=== PATIENT | female | born 1965 | race Caucasian/White ===

== ENCOUNTER 2016-08-23 10:34 | Emergency (ER) | payer OTHER ==
[2016-08-23 11:13] VITALS: BP 147/74
--- NOTE | 2016-08-23 11:52 | EDM.PDOC ---
{null, ED HPI GENERAL MEDICAL PROBLEM - General Chief Complaint: ENT Problem Stated Complaint: STREP THROAT Time Seen by Provider: 08/23/16 11:40 - History of Present Illness INITIAL COMMENTS - FREE TEXT/NARRATIVE: patient comes emergency Department today with complaints of a sore throat that has been going on for the past 5 days. She has had an intermittent fever and chills. Her pain is slowly getting worse in her throat. She denies any ear pressure congestion or pain. She denies any sinus congestion drainage or pain. She denies any difficulty swallowing. She denies shortness of breath or chest pain. She denies any rash. No nausea vomiting or diarrhea. No abdominal pain. Throat Pain Score (Numeric/FACES): 7 - Related Data Allergies Allergy/AdvReac Type Severity Reaction Status Date / Time No Known Allergies Allergy Verified 08/23/16 11:17 Home Meds: Home Meds DULoxetine [Cymbalta] 60 mg PO DAILY 08/23/16 [History] Diclofenac Sodium [Diclofenac Sodium ER] 100 mg PO 08/23/16 [History] Past Medical History - Past Surgical History Female Surgical History: Reports: Hysterectomy Musculoskeletal Surgical History: Reports: Other (See Below) Other Musculoskeletal Surgeries/Procedures:: foot surgery Social & Family History - Tobacco Use Smoking Status *Q: Current Every Day Smoker Years of Tobacco use: 20 Packs/Tins Daily: 0.5 - Caffeine Use Caffeine Use: Reports: Coffee, Soda - Alcohol Use Days Per Week of Alcohol Use: 2 Number of Drinks Per Day: 3 Total Drinks Per Week: 6 - Recreational Drug Use Recreational Drug Use: No ED ROS ENT - Review of Systems Review Of Systems: ROS reveals no pertinent complaints other than HPI. ED EXAM, ENT - Physical Exam Exam: See Below Exam Limited By: No Limitations General Appearance: Alert, WD/WN, No Apparent Distress Eye Exam: Bilateral Eye: Normal Inspection, PERRL Ears: Normal External Exam, Normal Canal, Hearing Grossly Normal, Normal TMs Nose: Normal Inspection, Normal Mucousa, No Blood Mouth/Throat: Normal Gums, Normal Lips, Muffled Voice, Pharyngeal Erythema, Tonsillar Erythema, Tonsillar Exudates, Tonsillar Swelling. No: Drooling, Oral Ulcers, Perioral Cyanosis, Peritonsillar Mass, Uvular Deviation, Uvular Edema Head: Atraumatic, Normocephalic Neck: Normal Inspection, Lymphadenopathy (L) (tonsillar lymphadenopathy bilateral.), Lymphadenopathy (R) Respiratory/Chest: No Respiratory Distress, Lungs Clear, Normal Breath Sounds, No Accessory Muscle Use Cardiovascular: Normal Peripheral Pulses, Regular Rate, Rhythm (Female) Exam: Deferred Rectal (Female) Exam: Deferred Extremities: Normal Inspection Neurological: Alert, Oriented, CN II-XII Intact Skin: Warm, Dry, Intact, Normal Color Course - Vital Signs Last Recorded V/S: Last Vital Signs Temp 36.8 C 08/23/16 11:11 Pulse 76 08/23/16 11:11 Resp 16 08/23/16 11:11 BP 147/74 H 08/23/16 11:11 Pulse Ox 98 08/23/16 11:11 - Orders/Labs/Meds Orders: Active Orders 24 hr Category Date Time Status CULTURE STREP A CONFIRMATION [RM] Stat Lab 08/23/16 11:08 Results STREP SCRN A RAPID W CULT CONF [] Stat Lab 08/23/16 11:08 Results - Re-Assessments/Exams Free Text/Narrative Re-Assessment/Exam: 08/23/16 11:49 although the patient has a negative initial strep screen her tonsils are quite erythematous with purulent discharge I will treat her for pharyngitis at this time. Discharged instructions as below were explained to the patient she was comfortable with the plan questions were answered. Departure - Departure Time of Disposition: 11:45 Disposition: Home, Self-Care 01 Clinical Impression: Pharyngitis Qualifiers: Pharyngitis/tonsillitis etiology: unspecified etiology Qualified Code(s): J02.9 - Acute pharyngitis, unspecified - Discharge Information Instructions: Pharyngitis, [id number] Forms: ED Department Discharge Additional Instructions: Tylenol and/or ibuprofen as needed for pain. Honey as needed for cough or sore throat. Warm salt water gargle rinses for comfort of her throat. Amoxicillin 500 mg one tab twice a day for 10 days. Take till gone no matter what. Return to emergency department for new or worsening symptoms. Recheck with primary care provider in the next 4-6 days if not improving. Sooner if worse. - My Orders Last 24 Hours: My Active Orders 08/23/16 11:08 CULTURE STREP A CONFIRMATION [RM] Stat STREP SCRN A RAPID W CULT CONF [] Stat - Assessment/Plan Last 24 Hours: My Active Orders 08/23/16 11:08 CULTURE STREP A CONFIRMATION [RM] Stat STREP SCRN A RAPID W CULT CONF [RM] Stat Assessment:: Pharyngitis. Plan: Tylenol and/or ibuprofen as needed for pain. Honey as needed for cough or sore throat. Warm salt water gargle rinses for comfort of her throat. Amoxicillin 500 mg one tab twice a day for 10 days. Take till gone no matter what. Return to emergency department for new or worsening symptoms. Recheck with primary care provider in the next 4-6 days if not improving. Sooner if worse. }
== END 2016-08-23 11:58 | disposition home or self-care (01) ==
LOC: DL.ED 10:34
DX: J02.9 Acute pharyngitis, unspecified (principal); F17.210 Nicotine dependence, cigarettes, uncomplicated; Z79.899 Other long term (current) drug therapy
CPT/HCPCS: 87081; 87430; 99282

== ENCOUNTER 2017-09-04 11:02 | Emergency (ER) | payer OTHER ==
--- NOTE | 2017-09-04 11:07 | EDM.PDOC ---
ED HPI GENERAL MEDICAL PROBLEM - General Chief Complaint: ENT Problem Stated Complaint: [id number] SORE THROAT Time Seen by Provider: 09/04/17 11:06 Source of Information: Reports: Patient, Old Records, RN, RN Notes Reviewed History Limitations: Reports: No Limitations - History of Present Illness INITIAL COMMENTS - FREE TEXT/NARRATIVE: C/O sore throat with sinus drainage and muffled ears on and off x2 weeks. Denies any fever, or chills. Admits to mild occasional dry cough. Duration: Constant, Waxing/Waning Location: Reports: Head, Face, Other (throat) Quality: Reports: Ache Severity: Moderate Improves with: Reports: None Worsens with: Reports: None Associated Symptoms: Reports: No Other Symptoms Throat Pain Score (Numeric/FACES): 4 - Related Data Allergies Allergy/AdvReac Type Severity Reaction Status Date / Time No Known Allergies Allergy Verified 09/04/17 11:08 Home Meds: Home Meds DULoxetine [Cymbalta] 60 mg PO DAILY 08/23/16 [History] Diclofenac Sodium [Diclofenac Sodium ER] 100 mg PO 08/23/16 [History] Past Medical History - Past Surgical History Female Surgical History: Reports: Hysterectomy Musculoskeletal Surgical History: Reports: Other (See Below) Other Musculoskeletal Surgeries/Procedures:: foot surgery Social & Family History - Family History Family Medical History: Noncontributory - Tobacco Use Smoking Status *Q: Current Every Day Smoker Tobacco Use Within Last Twelve Months: Cigarettes - Caffeine Use Caffeine Use: Reports: Coffee, Soda - Living Situation & Occupation Living situation: Reports: with Family ED ROS ENT - Review of Systems Review Of Systems: ROS reveals no pertinent complaints other than HPI. ED EXAM, ENT - Physical Exam Exam: See Below Exam Limited By: No Limitations General Appearance: Alert, WD/WN, No Apparent Distress Eye Exam: Bilateral Eye: Normal Inspection Ears: Normal External Exam, Normal Canal, Hearing Grossly Normal, TM Dullness. No: Canal Discharge, TM Bulging, TM Erythema, TM Blood, TM Fluid, TM Perforation Nose: Nasal Discharge (mild clear) Mouth/Throat: Normal Gums, Normal Lips, Normal Teeth, Other (clear postnasal drip). No: Pharyngeal Erythema, Tonsillar Erythema, Tonsillar Exudates, Tonsillar Swelling Head: Atraumatic, Normocephalic Neck: Normal Inspection, Supple, Non-Tender, Full Range of Motion. No: Lymphadenopathy (L), Lymphadenopathy (R) Respiratory/Chest: No Respiratory Distress, Lungs Clear, Normal Breath Sounds, No Accessory Muscle Use, Chest Non-Tender Cardiovascular: Regular Rate, Rhythm Neurological: Alert, Oriented, CN II-XII Intact, Normal Cognition, Normal Gait, No Motor/Sensory Deficits Psychiatric: Normal Affect, Normal Mood Skin: Warm, Dry, Intact, Normal Color, No Rash Course - Vital Signs Last Recorded V/S: Last Vital Signs Temp 36.6 C 09/04/17 11:10 Pulse 86 09/04/17 11:10 Resp 16 09/04/17 11:10 BP 140/60 09/04/17 11:10 Pulse Ox 100 09/04/17 11:10 Departure - Departure Time of Disposition: 11:26 Disposition: Home, Self-Care 01 Condition: Good Clinical Impression: Post-nasal drip Allergic rhinosinusitis Qualifiers: Allergic rhinitis trigger: unspecified Allergic rhinitis seasonality: unspecified seasonality Qualified Code(s): J30.9 - Allergic rhinitis, unspecified - Discharge Information Instructions: Sinus Rinse, [id number], Nasal Allergies Referrals: Shante Ha [Primary Care Provider] - Forms: ED Department Discharge Additional Instructions: Try to avoid smoking and smoke exposure. May continue with over the counter Loratadine 10mg once a day after completing the Loratadine D 24HR prescription. Follow up with your clinic if not improving in 4 to 5 days.
[2017-09-04 11:13] VITALS: BP 140/60
== END 2017-09-04 11:43 | disposition home or self-care (01) ==
LOC: DL.ED 11:02
DX: J30.9 Allergic rhinitis, unspecified (principal); F17.210 Nicotine dependence, cigarettes, uncomplicated; Z79.899 Other long term (current) drug therapy
CPT/HCPCS: 99283

== ENCOUNTER 2021-03-11 15:29 | Inpatient (IN) | payer OTHER ==
--- NOTE | 2021-03-11 15:34 | EDM.PDOC ---
ED HPI GENERAL MEDICAL PROBLEM - General Chief Complaint: Respiratory Problem Stated Complaint: COVID PT Time Seen by Provider: 03/11/21 15:30 Source of Information: Reports: Patient, Old Records, Provider (Tania Glynn NP), RN, RN Notes Reviewed History Limitations: Reports: No Limitations - History of Present Illness INITIAL COMMENTS - FREE TEXT/NARRATIVE: Pt sent from clinic by Tania Glynn NP with c/o cough, hypoxia, and COVID. Pt reports 10 days of COVID symptoms, and tested positive in clinic 7 days ago. Today she returned to clinic to ask for a prescription cough medication, and was found to have oxygen saturation 73% on room air. Pt admits to fever, cough, fatigue, and headache from coughing. She denies feeling short of breath. Denies chest pain, hemoptysis, abdominal pain, N/V/D, edema, or rash. Pt has not been COVID vaccinated. Onset: Gradual Duration: Day(s): (10) Location: Reports: Generalized Quality: Reports: Ache Severity: Moderate Improves with: Reports: None Worsens with: Reports: Other (Coughing) Associated Symptoms: Reports: No Other Symptoms - Related Data Allergies Allergy/AdvReac Type Severity Reaction Status Date / Time No Known Allergies Allergy Verified 03/11/21 15:44 Home Meds: Home Meds DULoxetine [Cymbalta] 60 mg PO DAILY 08/23/16 [History] Diclofenac Sodium [Diclofenac Sodium ER] 100 mg PO DAILY 08/23/16 [History] Past Medical History - Past Health History Medical/Surgical History: Denies Medical/Surgical History Musculoskeletal History: Reports: Arthritis - Past Surgical History Female Surgical History: Reports: Hysterectomy Musculoskeletal Surgical History: Reports: Other (See Below) Other Musculoskeletal Surgeries/Procedures:: foot surgery Social & Family History - Family History Family Medical History: No Pertinent Family History - Caffeine Use Caffeine Use: Reports: Coffee, Soda - Living Situation & Occupation Living situation: Reports: with Family ED ROS GENERAL - Review of Systems Review Of Systems: Comprehensive ROS is negative, except as noted in HPI. ED EXAM, GENERAL - Physical Exam Exam: See Below Exam Limited By: No Limitations General Appearance: Alert, WD/WN, No Apparent Distress Eye Exam: Bilateral Eye: Normal Inspection Nose: Normal Inspection, Normal Mucosa, No Blood Throat/Mouth: Normal Inspection, Normal Lips, Normal Teeth, Normal Gums, Normal Oropharynx, Normal Voice, No Airway Compromise Head: Atraumatic, Normocephalic Neck: Normal Inspection, Supple, Non-Tender, Full Range of Motion Respiratory/Chest: No Respiratory Distress, Lungs Clear, Normal Breath Sounds, No Accessory Muscle Use, Chest Non-Tender Cardiovascular: Regular Rate, Rhythm, No Edema, Tachycardia GI/Abdominal: Normal Bowel Sounds, Soft, Non-Tender Back Exam: Normal Inspection Extremities: Normal Inspection, Normal Range of Motion, Non-Tender, Normal Capillary Refill, No Pedal Edema Neurological: Alert, Oriented, CN II-XII Intact, Normal Cognition, Normal Gait, No Motor/Sensory Deficits Psychiatric: Normal Affect, Normal Mood Skin Exam: Warm, Dry, Intact, Normal Color, No Rash Course - Vital Signs Last Recorded V/S: Last Vital Signs Temp 98.2 F 03/11/21 15:47 Pulse 96 03/11/21 15:47 Resp 20 03/11/21 15:47 BP 123/70 03/11/21 15:47 Pulse Ox 92 L 03/11/21 15:47 - Orders/Labs/Meds Orders: Active Orders 24 hr Category Date Time Status Peripheral IV Care [RC] . DIRECTED Care 03/11/21 15:19 Active Chest w Cont [CT] Stat Exams 03/11/21 17:23 Ordered CULTURE BLOOD [BC] Stat Lab 03/11/21 15:32 Received CULTURE BLOOD [BC] Stat Lab 03/11/21 15:35 Received Sodium Chloride 0.9% [Saline Flush] Med 03/11/21 15:18 Active 10 ml FLUSH ASDIRECTED PRN Blood Culture x2 Reflex Set [OM.PC] Stat Oth 03/11/21 15:17 Ordered Peripheral IV Insertion Adult [OM.PC] Stat Oth 03/11/21 15:18 Ordered Medication Orders Sodium Chloride (Sodium Chloride 0.9% 10 Ml Syringe) 10 ml FLUSH ASDIRECTED PRN PRN Reason: Keep Vein Open Last Admin: 03/11/21 16:04 Dose: 10 ml Documented by: SUSAN Labs: Laboratory Tests 03/11/21 03/11/21 03/11/21 Range/Units 15:32 15:32 15:32 WBC 7.4 (5.0-10.0) 10^3/uL RBC 5.20 (4.2-5.4) 10^6/uL Hgb 15.1 (12.0-16.0) g/dL Hct 46.3 (37.0-47.0) % MCV 89.0 (80-100) fL MCH 29.0 (27.0-34.0) pg MCHC 32.6 L (33.0-35.0) g/dL Plt Count 273 (150-450) 10^3/uL Neut % (Auto) 75.6 H (42.2-75.2) % Lymph % (Auto) 16.1 L (20.5-50.1) % Gentry % (Auto) 8.1 H (2-8) % Eos % (Auto) 0.1 L (1.0-3.0) % Baso % (Auto) 0.1 (0.0-1.0) % Add Manual Diff Yes Neutrophils % (Manual) 73 (42-75) % Band Neutrophils % 8 % Lymphocytes % (Manual) 15 L (20-50) % Monocytes % (Manual) 4 (2-8) % PT (9.0-12.0) SEC INR (0.9-1.2) APTT (22.0-34.0) SEC D-Dimer, Quantitative 816 H (0-400) ng/mL Sodium 138 (136-145) mmol/L Potassium 3.5 (3.5-5.1) mmol/L Chloride 98 (98-107) mmol/L Carbon Dioxide 29 (21-32) mmol/L Anion Gap 14.5 H (7-13) mEq/L BUN 8 (7-18) mg/dL Creatinine 0.92 (0.55-1.02) mg/dL Est Cr Clr Drug Dosing TNP Estimated GFR (MDRD) > 60 BUN/Creatinine Ratio 8.7 (No establ ref range) Glucose 102 H (70-99) mg/dL Lactic Acid (0.4-2.0) mmol/L Calcium 8.5 (8.5-10.1) mg/dL Ferritin (8-252) mg/mL Total Bilirubin 0.9 (0.2-1.0) mg/dL AST 93 H (15-37) U/L ALT 102 H (14-59) U/L Alkaline Phosphatase 83 (46-116) U/L Troponin I High Sens 5 (<=51) pg/mL C-Reactive Protein 24.6 H (0.0-0.9) mg/dL Total Protein 7.8 (6.4-8.2) g/dL Albumin 2.9 L (3.4-5.0) g/dL Globulin 4.9 Albumin/Globulin Ratio 0.59 03/11/21 03/11/21 03/11/21 Range/Units 15:32 15:32 15:32 WBC (5.0-10.0) 10^3/uL RBC (4.2-5.4) 10^6/uL Hgb (12.0-16.0) g/dL Hct (37.0-47.0) % MCV (80-100) fL MCH (27.0-34.0) pg MCHC (33.0-35.0) g/dL Plt Count (150-450) 10^3/uL Neut % (Auto) (42.2-75.2) % Lymph % (Auto) (20.5-50.1) % Gentry % (Auto) (2-8) % Eos % (Auto) (1.0-3.0) % Baso % (Auto) (0.0-1.0) % Add Manual Diff Neutrophils % (Manual) (42-75) % Band Neutrophils % % Lymphocytes % (Manual) (20-50) % Monocytes % (Manual) (2-8) % PT 9.7 (9.0-12.0) SEC INR 1.0 (0.9-1.2) APTT 29.0 (22.0-34.0) SEC D-Dimer, Quantitative (0-400) ng/mL Sodium (136-145) mmol/L Potassium (3.5-5.1) mmol/L Chloride (98-107) mmol/L Carbon Dioxide (21-32) mmol/L Anion Gap (7-13) mEq/L BUN (7-18) mg/dL Creatinine (0.55-1.02) mg/dL Est Cr Clr Drug Dosing Estimated GFR (MDRD) BUN/Creatinine Ratio (No establ ref range) Glucose (70-99) mg/dL Lactic Acid 1.3 (0.4-2.0) mmol/L Calcium (8.5-10.1) mg/dL Ferritin 1629 H (8-252) mg/mL Total Bilirubin (0.2-1.0) mg/dL AST (15-37) U/L ALT (14-59) U/L Alkaline Phosphatase (46-116) U/L Troponin I High Sens (<=51) pg/mL C-Reactive Protein (0.0-0.9) mg/dL Total Protein (6.4-8.2) g/dL Albumin (3.4-5.0) g/dL Globulin Albumin/Globulin Ratio Meds: Medications Generic Name Dose Route Start Last Admin Trade Name Freq PRN Reason Stop Dose Admin Sodium Chloride 10 ml 03/11/21 15:18 03/11/21 16:04 Sodium Chloride 0.9% 10 Ml Syringe FLUSH 10 ml ASDIRECTED PRN Administration Keep Vein Open Discontinued Medications Generic Name Dose Route Start Last Admin Trade Name Freq PRN Reason Stop Dose Admin Promethazine HCl/Codeine 10 ml 03/11/21 15:57 03/11/21 16:03 Codeine/Promethazine 10-6.25 Mg/5 Ml Syrup 5 Ml Ud Cup PO 03/11/21 15:58 10 ml ONETIME ONE Administration Departure - Departure Time of Disposition: 17:42 (admitted to Dr. Dahl) Disposition: Admitted As Inpatient 66 Condition: Fair Clinical Impression: COVID-19 virus infection, Acute respiratory failure due to COVID-19 - Discharge Information *PRESCRIPTION DRUG MONITORING PROGRAM REVIEWED*: Not Applicable *COPY OF PRESCRIPTION DRUG MONITORING REPORT IN PATIENT YANE: Not Applicable Forms: ED Department Discharge Sepsis Event Note (ED) - Focused Exam Vital Signs: Vital Signs Temp Pulse Resp BP Pulse Ox 03/11/21 15:47 98.2 F 96 20 123/70 92 L - My Orders Last 24 Hours: My Active Orders 03/11/21 15:17 Blood Culture x2 Reflex Set [OM.PC] Stat 03/11/21 15:18 Sodium Chloride 0.9% [Saline Flush] 10 ml FLUSH ASDIRECTED PRN Peripheral IV Insertion Adult [OM.PC] Stat 03/11/21 15:19 Peripheral IV Care [RC] . DIRECTED 03/11/21 15:32 CULTURE BLOOD [BC] Stat 03/11/21 15:35 CULTURE BLOOD [BC] Stat 03/11/21 17:23 Chest w Cont [CT] Stat - Assessment/Plan Last 24 Hours: My Active Orders 03/11/21 15:17 Blood Culture x2 Reflex Set [OM.PC] Stat 03/11/21 15:18 Sodium Chloride 0.9% [Saline Flush] 10 ml FLUSH ASDIRECTED PRN Peripheral IV Insertion Adult [OM.PC] Stat 03/11/21 15:19 Peripheral IV Care [RC] . DIRECTED 03/11/21 15:32 CULTURE BLOOD [BC] Stat 03/11/21 15:35 CULTURE BLOOD [BC] Stat 03/11/21 17:23 Chest w Cont [CT] Stat
[2021-03-11] MEDS ORDERED: Codeine/Promethazine 10-6.25 MG/5 ML Syrup 5 ML UD Cup PO ONE (15:57)
[2021-03-11] MEDS: Sodium Chloride 0.9% 10 ML Syringe FLUSH PRN ×2 (16:04→20:59)
[2021-03-11 16:10] LABS: ANION GAP 14.5 mEq/L (7-13); CHLORIDE,CL 98 mmol/L (98-107); SODIUM,NA 138 mmol/L (136-145)
[2021-03-11] MEDS ORDERED: Iopamidol 755 Mg/ML 100 ML Bottle IVPUSH ONE (17:46)
--- NOTE | 2021-03-11 18:08 | CT ---
PROCEDURE INFORMATION: Exam: CT Chest With Contrast; Diagnostic Exam date and time: 03/11/2021 5:37 PM Age: 56 years old Clinical indication: Shortness of breath; Additional info: Covid, hypoxia, pe study TECHNIQUE: Imaging protocol: Diagnostic computed tomography of the chest with contrast. Radiation optimization: All CT scans at this facility use at least one of these dose optimization techniques: automated exposure control; mA and/or kV adjustment per patient size (includes targeted exams where dose is matched to clinical indication); or iterative reconstruction. Contrast material: ISOVUE 370; Contrast volume: 73 ml; Contrast route: INTRAVENOUS (IV); COMPARISON: No relevant prior studies available. FINDINGS: Lungs: Bilateral ground-glass, semi-solid and solid pulmonary parenchymal infiltrates located predominantly peripherally particularly in the lower lung zones extending to the pleural surfaces. Findings consistent with multifocal viral pneumonitis (organizing type) and known Covid diagnosis. Pleural spaces: Unremarkable. No pneumothorax. No pleural effusion. Heart: Unremarkable. No cardiomegaly. No pericardial effusion. Pulmonary arteries: There are no pulmonary emboli. Aorta: There is no aortic dissection or aneurysm. Lymph nodes: Clinic flow mediastinal and bilateral hilar lymphadenopathy. Bones/joints: The spine demonstrates mild degenerative changes. Soft tissues: Unremarkable. IMPRESSION: 1. Bilateral ground-glass, semi-solid and solid pulmonary parenchymal infiltrates located predominantly peripherally particularly in the lower lung zones extending to the pleural surfaces. Findings consistent with multifocal viral pneumonitis (organizing type) and known Covid diagnosis. 2. There is no aortic dissection or aneurysm. 3. Clinic flow mediastinal and bilateral hilar lymphadenopathy. 4. There are no pulmonary emboli.
[2021-03-11] MEDS ORDERED: Ondansetron 4 MG/2 ML SDV IVPUSH PRN (18:51)
[2021-03-11] MEDS ORDERED: Acetaminophen 325 MG Tab PO PRN (18:51)
[2021-03-11] MEDS ORDERED: Polyethylene Glycol 3350 Powder 17 GM Packet PO PRN (18:51)
--- NOTE | 2021-03-11 19:01 | PCM.HP ---
H&P History of Present Illness - General Date of Service: 03/11/21 Admit Problem/Dx: Admission Diagnosis/Problem Admission Diagnosis/Problem Pneumonia Source of Information: Patient, Provider History Limitations: Reports: No Limitations - History of Present Illness Initial Comments - Free Text/Narative: Alyssa is a 56 year old woman with PMH significant for depression who presented to the ED from clinic by Tania Glynn NP with c/o cough, hypoxia, and recent COVID diagnosis. she is not vaccinated. she reported 10 days of COVID symptoms, and tested positive in clinic 03/04/21. She was seen for follow up in clinic today for evaluation of continued cough and was requesting cough medicine. O2 sat in clinic was 73% on room air. associated symptoms include: fever, cough, fa tigue, and headache from coughing. She denies shortness of breath, chest pain, hemoptysis, abdominal pain, N/V/D, edema, or rash. she tried OTC medications to make it better but they did not work. she feels worse with activity and better with rest. she has never had anything like this before. she has no pain. Onset of Symptoms: Reports: Today Symptom Onset Date: 03/04/21 Duration of Symptoms: Reports: Day(s): Improves with: Reports: None Worsens with: Reports: Movement Context: Reports: Sick Contact Associated Symptoms: Reports: Cough, Fever/Chills, Headaches. Denies: Nausea/Vomiting, Shortness of Breath - Related Data Allergies/Adverse Reactions: Allergies Allergy/AdvReac Type Severity Reaction Status Date / Time No Known Allergies Allergy Verified 03/11/21 15:44 Home Medications: Home Meds DULoxetine [Cymbalta] 90 mg PO DAILY 08/23/16 [History] Diclofenac Sodium [Diclofenac Sodium ER] 100 mg PO DAILY 08/23/16 [History] Past Medical History - Past Health History Medical/Surgical History: Denies Medical/Surgical History Musculoskeletal History: Reports: Arthritis Psychiatric History: Reports: Depression - Past Surgical History Female Surgical History: Reports: Hysterectomy Musculoskeletal Surgical History: Reports: Other (See Below) Other Musculoskeletal Surgeries/Procedures:: foot surgery Social & Family History - Family History Family Medical History: No Pertinent Family History - Tobacco Use Tobacco Use Status *Q: Never Tobacco User - Caffeine Use Caffeine Use: Reports: None - Recreational Drug Use Recreational Drug Use: No - Living Situation & Occupation Living situation: Reports: with Family H&P Review of Systems - Review of Systems: Review Of Systems: See Below General: Reports: Fever, Weakness, Fatigue. Denies: Decreased Appetite Pulmonary: Reports: Cough, Sputum. Denies: Shortness of Breath, Wheezing, Hemoptysis Cardiovascular: Reports: Dyspnea on Exertion. Denies: Chest Pain, Palpitations Gastrointestinal: Reports: No Symptoms Genitourinary: Reports: No Symptoms Musculoskeletal: Reports: No Symptoms Skin: Reports: No Symptoms Psychiatric: Reports: No Symptoms Neurological: Reports: No Symptoms Hematologic/Lymphatic: Reports: No Symptoms Immunologic: Reports: No Symptoms Exam - Exam Exam: See Below - Vital Signs Vital Signs: Last Vital Signs Temp 98.2 F 03/11/21 15:47 Pulse 96 03/11/21 15:47 Resp 20 03/11/21 15:47 BP 123/70 03/11/21 15:47 Pulse Ox 92 L 03/11/21 15:47 - Exam Quality Assessment: Supplemental Oxygen, DVT Prophylaxis. No: Urinary Catheter, Skin Breakdown General: Alert, Oriented, Cooperative, Mild Distress HEENT: EOMI, Pupils Equal Neck: Supple, Full Range of Motion. No: JVD Lungs: Decreased Breath Sounds (bilateral lower and mid lobes). No: Rales, Rhonchi, Wheezing Cardiovascular: Regular Rate, Regular Rhythm. No: Tachycardia, Systolic Murmur GI/Abdominal Exam: Soft, Non-Tender (Female) Exam: Deferred Rectal (Female) Exam: Deferred Back Exam: Normal Inspection, Full Range of Motion Extremities: Normal Range of Motion, Non-Tender, No Pedal Edema Skin: Warm, Dry, Intact Neuro Extensive - Mental Status: Alert, Oriented x3 Psychiatric: Normal Affect, Normal Mood - Patient Data Lab Results Last 24 hrs: Laboratory Results - last 24 hr 03/11/21 03/11/21 03/11/21 Range/Units 15:32 15:32 15:32 WBC 7.4 (5.0-10.0) 10^3/uL RBC 5.20 (4.2-5.4) 10^6/uL Hgb 15.1 (12.0-16.0) g/dL Hct 46.3 (37.0-47.0) % MCV 89.0 (80-100) fL MCH 29.0 (27.0-34.0) pg MCHC 32.6 L (33.0-35.0) g/dL Plt Count 273 (150-450) 10^3/uL Neut % (Auto) 75.6 H (42.2-75.2) % Lymph % (Auto) 16.1 L (20.5-50.1) % [place] % (Auto) 8.1 H (2-8) % Eos % (Auto) 0.1 L (1.0-3.0) % Baso % (Auto) 0.1 (0.0-1.0) % Add Manual Diff Yes Neutrophils % (Manual) 73 (42-75) % Band Neutrophils % 8 % Lymphocytes % (Manual) 15 L (20-50) % Monocytes % (Manual) 4 (2-8) % PT (9.0-12.0) SEC INR (0.9-1.2) APTT (22.0-34.0) SEC D-Dimer, Quantitative 816 H (0-400) ng/mL Sodium 138 (136-145) mmol/L Potassium 3.5 (3.5-5.1) mmol/L Chloride 98 (98-107) mmol/L Carbon Dioxide 29 (21-32) mmol/L Anion Gap 14.5 H (7-13) mEq/L BUN 8 (7-18) mg/dL Creatinine 0.92 (0.55-1.02) mg/dL Est Cr Clr Drug Dosing TNP Estimated GFR (MDRD) > 60 BUN/Creatinine Ratio 8.7 (No establ ref range) Glucose 102 H (70-99) mg/dL Lactic Acid (0.4-2.0) mmol/L Calcium 8.5 (8.5-10.1) mg/dL Ferritin (8-252) mg/mL Total Bilirubin 0.9 (0.2-1.0) mg/dL AST 93 H (15-37) U/L ALT 102 H (14-59) U/L Alkaline Phosphatase 83 (46-116) U/L Troponin I High Sens 5 (<=51) pg/mL C-Reactive Protein 24.6 H (0.0-0.9) mg/dL Total Protein 7.8 (6.4-8.2) g/dL Albumin 2.9 L (3.4-5.0) g/dL Globulin 4.9 Albumin/Globulin Ratio 0.59 03/11/21 03/11/21 03/11/21 Range/Units 15:32 15:32 15:32 WBC (5.0-10.0) 10^3/uL RBC (4.2-5.4) 10^6/uL Hgb (12.0-16.0) g/dL Hct (37.0-47.0) % MCV (80-100) fL MCH (27.0-34.0) pg MCHC (33.0-35.0) g/dL Plt Count (150-450) 10^3/uL Neut % (Auto) (42.2-75.2) % Lymph % (Auto) (20.5-50.1) % [place] % (Auto) (2-8) % Eos % (Auto) (1.0-3.0) % Baso % (Auto) (0.0-1.0) % Add Manual Diff Neutrophils % (Manual) (42-75) % Band Neutrophils % % Lymphocytes % (Manual) (20-50) % Monocytes % (Manual) (2-8) % PT 9.7 (9.0-12.0) SEC INR 1.0 (0.9-1.2) APTT 29.0 (22.0-34.0) SEC D-Dimer, Quantitative (0-400) ng/mL Sodium (136-145) mmol/L Potassium (3.5-5.1) mmol/L Chloride (98-107) mmol/L Carbon Dioxide (21-32) mmol/L Anion Gap (7-13) mEq/L BUN (7-18) mg/dL Creatinine (0.55-1.02) mg/dL Est Cr Clr Drug Dosing Estimated GFR (MDRD) BUN/Creatinine Ratio (No establ ref range) Glucose (70-99) mg/dL Lactic Acid 1.3 (0.4-2.0) mmol/L Calcium (8.5-10.1) mg/dL Ferritin 1629 H (8-252) mg/mL Total Bilirubin (0.2-1.0) mg/dL AST (15-37) U/L ALT (14-59) U/L Alkaline Phosphatase (46-116) U/L Troponin I High Sens (<=51) pg/mL C-Reactive Protein (0.0-0.9) mg/dL Total Protein (6.4-8.2) g/dL Albumin (3.4-5.0) g/dL Globulin Albumin/Globulin Ratio Result Diagrams: 03/12/21 06:13 03/12/21 06:13 Problem List Initiated/Reviewed/Updated: Yes Orders Last 24hrs: Active Orders 24 hr Category Date Time Status Admission Diagnosis [ADT] Stat ADT 03/11/21 17:56 Ordered Admission Status [Patient Status] [ADT] Routine ADT 03/11/21 17:56 Active Cardiac Monitoring [RC] CONTINUOUS Care 03/11/21 18:52 Ordered Height and Weight [RC] DAILY Care 03/11/21 18:51 Ordered Incentive Breathing [RT Incentive Spirometry] [RC] Care 03/11/21 18:55 Ordered Q1HWA Intake and Output [RC] QSHIFT Care 03/11/21 18:52 Ordered Nurse Communication: Isolation [RC] ASDIRECTED Care 03/11/21 18:51 Ordered Oxygen Therapy [RC] PRN Care 03/11/21 18:51 Ordered Positioning, Patient [RC] ASDIRECTED Care 03/11/21 18:53 Ordered Pulse Oximetry [RC] CONTINUOUS Care 03/11/21 18:52 Ordered Up With Assistance [RC] ASDIRECTED Care 03/11/21 18:51 Ordered VTE/DVT Education [RC] PER UNIT ROUTINE Care 03/11/21 18:51 Ordered Vital Signs [RC] Q4H Care 03/11/21 18:51 Ordered Regular Diet [DIET] Diet 03/11/21 Breakfast Ordered BILIRUBIN DIRECT [CHEM] DAILY Lab 03/11/21 19:00 Ordered BILIRUBIN DIRECT [CHEM] DAILY Lab 03/12/21 19:00 Ordered BILIRUBIN DIRECT [CHEM] DAILY Lab 03/13/21 19:00 Ordered BILIRUBIN DIRECT [CHEM] DAILY Lab 03/14/21 19:00 Ordered BILIRUBIN DIRECT [CHEM] DAILY Lab 03/15/21 19:00 Ordered BILIRUBIN DIRECT [CHEM] Stat Lab 03/11/21 18:54 Ordered CBC W/O DIFF,HEMOGRAM [HEME] AM Lab 03/12/21 05:11 Ordered COMPREHENSIVE METABOLIC PN,CMP [CHEM] AM Lab 03/12/21 05:11 Ordered COMPREHENSIVE METABOLIC PN,CMP [CHEM] DAILY Lab 03/11/21 19:00 Ordered COMPREHENSIVE METABOLIC PN,CMP [CHEM] DAILY Lab 03/12/21 19:00 Ordered COMPREHENSIVE METABOLIC PN,CMP [CHEM] DAILY Lab 03/13/21 19:00 Ordered COMPREHENSIVE METABOLIC PN,CMP [CHEM] DAILY Lab 03/14/21 19:00 Ordered COMPREHENSIVE METABOLIC PN,CMP [CHEM] DAILY Lab 03/15/21 19:00 Ordered COMPREHENSIVE METABOLIC PN,CMP [CHEM] Stat Lab 03/11/21 18:54 Ordered CULTURE BLOOD [BC] Stat Lab 03/11/21 15:32 Received CULTURE BLOOD [BC] Stat Lab 03/11/21 15:35 Received Acetaminophen [TylenoL] Med 03/11/21 18:51 Ordered 650 mg PO Q4H PRN DULoxetine [Cymbalta] Med 03/12/21 09:00 Ordered 90 mg PO DAILY Enoxaparin [Lovenox] Med 03/11/21 19:00 Ordered 40 mg SUBCUT DAILY Ondansetron [Zofran] Med 03/11/21 18:51 Ordered 4 mg IVPUSH Q6H PRN Remdesivir 100 mg Med 03/12/21 09:00 Ordered Sodium Chloride 0.9% [Normal Saline AdvBag] 100 ml IV Q24H Remdesivir 200 mg Med 03/11/21 18:51 Ordered Sodium Chloride 0.9% [Normal Saline] 250 ml IV ONETIME Sodium Chloride 0.9% [Saline Flush] Med 03/11/21 15:18 Active 10 ml FLUSH ASDIRECTED PRN dexAMETHasone [Decadron] Med 03/11/21 19:00 Ordered 6 mg IVPUSH DAILY polyethylene glycoL 3350 [MiraLAX] Med 03/11/21 18:51 Ordered 17 gm PO DAILY PRN Blood Culture x2 Reflex Set [OM.PC] Stat Oth 03/11/21 15:17 Ordered Isolation [COMM] Stat Oth 03/11/21 18:51 Ordered Peripheral IV Insertion Adult [OM.PC] Stat Oth 03/11/21 15:18 Ordered Resuscitation Status Routine Resus Stat 03/11/21 18:51 Ordered Medication Orders Sodium Chloride (Sodium Chloride 0.9% 10 Ml Syringe) 10 ml FLUSH ASDIRECTED PRN PRN Reason: Keep Vein Open Last Admin: 03/11/21 16:04 Dose: 10 ml Documented by: SUSAN Assessment/Plan Comment:: ACTIVE PROBLEMS: Covid 19 viral pneumonia acute respiratory failure with hypoxia 2/2 above - currently requiring 5L supplemental oxygen to maintain saturations >90% Plan: - tele - wean oxygen as tolerated - aggressive IS 10x in a row every hour while awake - Prone as tolerated - dexamethasone and remdesivir per protocol - RT consulted to follow CHRONIC CONDITIONS: - unspecified depression: continue cymbalta - nicotine dependence, cigarettes, uncomplicated: smoking cessation counseling provided for 3-10 minutes. pt is working on quitting. nicotine replacement per protocol. Code status: Full code DVT prophylaxis: subQ lovenox
[2021-03-11] MEDS ORDERED: REMDESIVIR 200 MG in Sodium Chloride 0.9% 250 ML IV ONE (20:00)
[2021-03-11] MEDS: Dexamethasone 4 MG/ML SDV IVPUSH SCH (20:54)
[2021-03-11] MEDS ORDERED: Enoxaparin 40 MG/0.4 ML Syringe SUBCUT SCH (21:00)
[2021-03-12] MEDS: DULoxetine 30 MG Cap PO SCH (09:00)
[2021-03-12] MEDS: Dexamethasone 4 MG/ML SDV IVPUSH SCH (09:08)
[2021-03-12] MEDS ORDERED: Diltiazem 25 MG/5 ML SDV IVPUSH ONE (09:14)
[2021-03-12] MEDS: Adenosine 6 MG/2 ML SDV IVPUSH ONE ×2 (09:39→09:44)
[2021-03-12] MEDS ORDERED: Adenosine 6 MG/2 ML SDV IVPUSH ONE ×2 (09:42→09:45)
[2021-03-12] MEDS ORDERED: Adenosine 12 MG/4 ML SDV IVPUSH ONE (09:45)
[2021-03-12] MEDS: Diltiazem 125 MG in Sodium Chloride 0.9% 100 ML IV SCH ×2 (09:48→15:00)
[2021-03-12 10:53] LABS: ANION GAP 13.2 mEq/L (7-13); CHLORIDE,CL 101 mmol/L (98-107); SODIUM,NA 140 mmol/L (136-145)
[2021-03-12] MEDS ORDERED: Metoprolol Tartrate 5 MG/5 ML SDV IVPUSH PRN (11:08)
[2021-03-12] MEDS: Apixaban 5 MG Tab PO SCH ×2 (11:18→21:42)
--- NOTE | 2021-03-12 11:52 | PCM.PN ---
- General Info Date of Service: 03/12/21 Admission Dx/Problem (Free Text): Admission Diagnosis/Problem Admission Diagnosis/Problem covid 19 viral pneumonia, acute respiratory failure with hypoxia, atrial fibrillation with RVR Functional Status: Reports: Pain Controlled - Review of Systems General: Reports: No Symptoms HEENT: Reports: No Symptoms Pulmonary: Reports: Shortness of Breath, Cough, Sputum. Denies: Wheezing Cardiovascular: Reports: Palpitations, Dyspnea on Exertion. Denies: Lightheadedness Gastrointestinal: Reports: No Symptoms Genitourinary: Reports: No Symptoms Musculoskeletal: Reports: No Symptoms Skin: Reports: No Symptoms Neurological: Reports: No Symptoms Psychiatric: Reports: Anxiety - Patient Data Vitals - Most Recent: Last Vital Signs Temp 98.1 F 03/12/21 08:00 Pulse 174 H 03/12/21 11:18 Resp 22 H 03/12/21 10:23 BP 144/103 H 03/12/21 11:18 Pulse Ox 91 L 03/12/21 10:23 Weight - Most Recent: 171 lb I&O - Last 24 Hours: Intake & Output 03/11/21 03/12/21 03/12/21 22:59 06:59 14:59 Intake Total 275 Balance 275 Lab Results Last 24 Hours: Laboratory Results - last 24 hr 03/11/21 03/11/21 03/11/21 Range/Units 15:32 15:32 15:32 WBC 7.4 (5.0-10.0) 10^3/uL RBC 5.20 (4.2-5.4) 10^6/uL Hgb 15.1 (12.0-16.0) g/dL Hct 46.3 (37.0-47.0) % MCV 89.0 (80-100) fL MCH 29.0 (27.0-34.0) pg MCHC 32.6 L (33.0-35.0) g/dL Plt Count 273 (150-450) 10^3/uL Neut % (Auto) 75.6 H (42.2-75.2) % Lymph % (Auto) 16.1 L (20.5-50.1) % [place] % (Auto) 8.1 H (2-8) % Eos % (Auto) 0.1 L (1.0-3.0) % Baso % (Auto) 0.1 (0.0-1.0) % Add Manual Diff Yes Neutrophils % (Manual) 73 (42-75) % Band Neutrophils % 8 % Lymphocytes % (Manual) 15 L (20-50) % Monocytes % (Manual) 4 (2-8) % PT (9.0-12.0) SEC INR (0.9-1.2) APTT (22.0-34.0) SEC D-Dimer, Quantitative 816 H (0-400) ng/mL Sodium 138 (136-145) mmol/L Potassium 3.5 (3.5-5.1) mmol/L Chloride 98 (98-107) mmol/L Carbon Dioxide 29 (21-32) mmol/L Anion Gap 14.5 H (7-13) mEq/L BUN 8 (7-18) mg/dL Creatinine 0.92 (0.55-1.02) mg/dL Est Cr Clr Drug Dosing TNP Estimated GFR (MDRD) > 60 BUN/Creatinine Ratio 8.7 (No establ ref range) Glucose 102 H (70-99) mg/dL Lactic Acid (0.4-2.0) mmol/L Calcium 8.5 (8.5-10.1) mg/dL Magnesium (1.8-2.4) mg/dL Ferritin (8-252) mg/mL Total Bilirubin 0.9 (0.2-1.0) mg/dL Direct Bilirubin (0.0-0.2) mg/dL AST 93 H (15-37) U/L ALT 102 H (14-59) U/L Alkaline Phosphatase 83 (46-116) U/L Troponin I High Sens 5 (<=51) pg/mL C-Reactive Protein 24.6 H (0.0-0.9) mg/dL Total Protein 7.8 (6.4-8.2) g/dL Albumin 2.9 L (3.4-5.0) g/dL Globulin 4.9 Albumin/Globulin Ratio 0.59 03/11/21 03/11/21 03/11/21 Range/Units 15:32 15:32 15:32 WBC (5.0-10.0) 10^3/uL RBC (4.2-5.4) 10^6/uL Hgb (12.0-16.0) g/dL Hct (37.0-47.0) % MCV (80-100) fL MCH (27.0-34.0) pg MCHC (33.0-35.0) g/dL Plt Count (150-450) 10^3/uL Neut % (Auto) (42.2-75.2) % Lymph % (Auto) (20.5-50.1) % [place] % (Auto) (2-8) % Eos % (Auto) (1.0-3.0) % Baso % (Auto) (0.0-1.0) % Add Manual Diff Neutrophils % (Manual) (42-75) % Band Neutrophils % % Lymphocytes % (Manual) (20-50) % Monocytes % (Manual) (2-8) % PT 9.7 (9.0-12.0) SEC INR 1.0 (0.9-1.2) APTT 29.0 (22.0-34.0) SEC D-Dimer, Quantitative (0-400) ng/mL Sodium (136-145) mmol/L Potassium (3.5-5.1) mmol/L Chloride (98-107) mmol/L Carbon Dioxide (21-32) mmol/L Anion Gap (7-13) mEq/L BUN (7-18) mg/dL Creatinine (0.55-1.02) mg/dL Est Cr Clr Drug Dosing Estimated GFR (MDRD) BUN/Creatinine Ratio (No establ ref range) Glucose (70-99) mg/dL Lactic Acid 1.3 (0.4-2.0) mmol/L Calcium (8.5-10.1) mg/dL Magnesium (1.8-2.4) mg/dL Ferritin 1629 H (8-252) mg/mL Total Bilirubin (0.2-1.0) mg/dL Direct Bilirubin (0.0-0.2) mg/dL AST (15-37) U/L ALT (14-59) U/L Alkaline Phosphatase (46-116) U/L Troponin I High Sens (<=51) pg/mL C-Reactive Protein (0.0-0.9) mg/dL Total Protein (6.4-8.2) g/dL Albumin (3.4-5.0) g/dL Globulin Albumin/Globulin Ratio 1203/12/21 03/12/21 Range/Units 06:13 06:13 06:13 WBC 6.1 (5.0-10.0) 10^3/uL RBC 4.55 (4.2-5.4) 10^6/uL Hgb 12.9 D (12.0-16.0) g/dL Hct 40.9 (37.0-47.0) % MCV 89.9 (80-100) fL MCH 28.4 (27.0-34.0) pg MCHC 31.5 L (33.0-35.0) g/dL Plt Count 306 (150-450) 10^3/uL Neut % (Auto) (42.2-75.2) % Lymph % (Auto) (20.5-50.1) % [place] % (Auto) (2-8) % Eos % (Auto) (1.0-3.0) % Baso % (Auto) (0.0-1.0) % Add Manual Diff Neutrophils % (Manual) (42-75) % Band Neutrophils % % Lymphocytes % (Manual) (20-50) % Monocytes % (Manual) (2-8) % PT (9.0-12.0) SEC INR (0.9-1.2) APTT (22.0-34.0) SEC D-Dimer, Quantitative (0-400) ng/mL Sodium 140 (136-145) mmol/L Potassium 4.2 (3.5-5.1) mmol/L Chloride 101 (98-107) mmol/L Carbon Dioxide 30 (21-32) mmol/L Anion Gap 13.2 H (7-13) mEq/L BUN 8 (7-18) mg/dL Creatinine 0.78 (0.55-1.02) mg/dL Est Cr Clr Drug Dosing 76.85 Estimated GFR (MDRD) > 60 BUN/Creatinine Ratio (No establ ref range) Glucose 135 H (70-99) mg/dL Lactic Acid (0.4-2.0) mmol/L Calcium 8.4 L (8.5-10.1) mg/dL Magnesium 2.4 (1.8-2.4) mg/dL Ferritin (8-252) mg/mL Total Bilirubin (0.2-1.0) mg/dL Direct Bilirubin 0.2 (0.0-0.2) mg/dL AST (15-37) U/L ALT (14-59) U/L Alkaline Phosphatase (46-116) U/L Troponin I High Sens (<=51) pg/mL C-Reactive Protein (0.0-0.9) mg/dL Total Protein (6.4-8.2) g/dL Albumin (3.4-5.0) g/dL Globulin Albumin/Globulin Ratio Med Orders - Current: Current Medications Acetaminophen (Acetaminophen 325 Mg Tab) 650 mg PO Q4H PRN PRN Reason: Pain (Mild 1-3)/fever Last Admin: 03/11/21 21:01 Dose: 650 mg Documented by: Apixaban (Apixaban 5 Mg Tab) [address] [facility] Last Admin: 03/12/21 11:18 Dose: 5 mg Documented by: Dexamethasone (Dexamethasone 4 Mg/Ml Sdv) [address] [facility] Stop: 03/20/21 09:01 Last Admin: 03/12/21 09:08 Dose: 6 mg Documented by: Duloxetine HCl (Duloxetine 30 Mg Cap) [address] [facility] Last Admin: 03/12/21 09:00 Dose: 90 mg Documented by: Remdesivir 100 mg/ Sodium (Chloride) 100 mls @ 100 mls/hr IV Q24H [facility] Stop: 03/15/21 20:59 Diltiazem HCl 125 mg/ Sodium (Chloride) 125 mls @ 10 mls/hr IV TITRATE GRICELDA; Protocol Last Titration: 03/12/21 10:10 Dose: 20 mg/hr, 20 mls/hr Documented by: Metoprolol Tartrate (Metoprolol Tartrate 5 Mg/5 Ml Sdv) 5 mg IVPUSH Q6H PRN PRN Reason: Other Last Admin: 03/12/21 11:18 Dose: 5 mg Documented by: Ondansetron HCl (Ondansetron 4 Mg/2 Ml Sdv) 4 mg IVPUSH Q6H PRN PRN Reason: Nausea/Vomiting Polyethylene Glycol (Polyethylene Glycol 3350 Powder 17 Gm Packet) 17 gm PO DAILY PRN PRN Reason: Constipation Sodium Chloride (Sodium Chloride 0.9% 10 Ml Syringe) 10 ml FLUSH ASDIRECTED PRN PRN Reason: Keep Vein Open Discontinued Medications Adenosine (Adenosine 6 Mg/2 Ml Sdv) 6 mg IVPUSH NOW ONE Stop: 03/12/21 09:36 Last Admin: 03/12/21 09:39 Dose: 6 mg Documented by: Adenosine (Adenosine 12 Mg/4 Ml Sdv) 12 mg IVPUSH NOW ONE Stop: 03/12/21 09:46 Last Admin: 03/12/21 09:47 Dose: 12 mg Documented by: Adenosine (Adenosine 6 Mg/2 Ml Sdv) 6 mg IVPUSH NOW ONE Stop: 03/12/21 09:43 Last Admin: 03/12/21 09:44 Dose: 6 mg Documented by: Diltiazem HCl (Diltiazem 25 Mg/5 Ml Sdv) 20 mg IVPUSH ONETIME ONE Stop: 03/12/21 09:15 Last Admin: 03/12/21 09:27 Dose: 20 mg Documented by: Enoxaparin Sodium (Enoxaparin 40 Mg/0.4 Ml Syringe) 40 mg SUBCUT BEDTIME GRICELDA Last Admin: 03/11/21 22:08 Dose: 40 mg Documented by: Remdesivir 200 mg/ Sodium (Chloride) 250 mls @ 250 mls/hr IV ONETIME ONE Stop: 03/11/21 20:59 Last Infusion: 03/11/21 22:11 Dose: Infused Documented by: Iopamidol (Iopamidol 755 Mg/Ml 100 Ml Bottle) 100 ml IVPUSH ONETIME ONE Stop: 03/11/21 17:47 Last Admin: 03/11/21 17:48 Dose: 73 ml Documented by: Promethazine HCl/Codeine (Codeine/Promethazine 10-6.25 Mg/5 Ml Syrup 5 Ml Ud Cup) 10 ml PO ONETIME ONE Stop: 03/11/21 15:58 Last Admin: 03/11/21 16:03 Dose: 10 ml Documented by: Sodium Chloride (Sodium Chloride 0.9% 10 Ml Syringe) 10 ml FLUSH ASDIRECTED PRN PRN Reason: Keep Vein Open Last Admin: 03/11/21 20:59 Dose: 10 ml Documented by: - Exam Quality Assessment: Supplemental Oxygen, Urine Catheter (can remove evening 03/12), DVT Prophylaxis General: Alert, Oriented, Cooperative, Moderate Distress HEENT: EOMI Neck: Supple, No JVD Lungs: Decreased Breath Sounds (bilateral bases), Rales (scattered in upper airways bilaterally), Other (increased work of breathing) Cardiovascular: Irregular Rhythm, Tachycardia. No: Murmurs GI/Abdominal Exam: Soft, Non-Tender (Female) Exam: Deferred Back Exam: Full Range of Motion Extremities: Normal Range of Motion, Non-Tender, No Pedal Edema Skin: Warm, Dry, Intact Psy/Mental Status: Alert, Anxious - Patient Data Lab Results Last 24 hrs: Laboratory Results - last 24 hr 03/11/21 03/11/21 03/11/21 Range/Units 15:32 15:32 15:32 WBC 7.4 (5.0-10.0) 10^3/uL RBC 5.20 (4.2-5.4) 10^6/uL Hgb 15.1 (12.0-16.0) g/dL Hct 46.3 (37.0-47.0) % MCV 89.0 (80-100) fL MCH 29.0 (27.0-34.0) pg MCHC 32.6 L (33.0-35.0) g/dL Plt Count 273 (150-450) 10^3/uL Neut % (Auto) 75.6 H (42.2-75.2) % Lymph % (Auto) 16.1 L (20.5-50.1) % [place] % (Auto) 8.1 H (2-8) % Eos % (Auto) 0.1 L (1.0-3.0) % Baso % (Auto) 0.1 (0.0-1.0) % Add Manual Diff Yes Neutrophils % (Manual) 73 (42-75) % Band Neutrophils % 8 % Lymphocytes % (Manual) 15 L (20-50) % Monocytes % (Manual) 4 (2-8) % PT (9.0-12.0) SEC INR (0.9-1.2) APTT (22.0-34.0) SEC D-Dimer, Quantitative 816 H (0-400) ng/mL Sodium 138 (136-145) mmol/L Potassium 3.5 (3.5-5.1) mmol/L Chloride 98 (98-107) mmol/L Carbon Dioxide 29 (21-32) mmol/L Anion Gap 14.5 H (7-13) mEq/L BUN 8 (7-18) mg/dL Creatinine 0.92 (0.55-1.02) mg/dL Est Cr Clr Drug Dosing TNP Estimated GFR (MDRD) > 60 BUN/Creatinine Ratio 8.7 (No establ ref range) Glucose 102 H (70-99) mg/dL Lactic Acid (0.4-2.0) mmol/L Calcium 8.5 (8.5-10.1) mg/dL Magnesium (1.8-2.4) mg/dL Ferritin (8-252) mg/mL Total Bilirubin 0.9 (0.2-1.0) mg/dL Direct Bilirubin (0.0-0.2) mg/dL AST 93 H (15-37) U/L ALT 102 H (14-59) U/L Alkaline Phosphatase 83 (46-116) U/L Troponin I High Sens 5 (<=51) pg/mL C-Reactive Protein 24.6 H (0.0-0.9) mg/dL Total Protein 7.8 (6.4-8.2) g/dL Albumin 2.9 L (3.4-5.0) g/dL Globulin 4.9 Albumin/Globulin Ratio 0.59 03/11/21 03/11/21 03/11/21 Range/Units 15:32 15:32 15:32 WBC (5.0-10.0) 10^3/uL RBC (4.2-5.4) 10^6/uL Hgb (12.0-16.0) g/dL Hct (37.0-47.0) % MCV (80-100) fL MCH (27.0-34.0) pg MCHC (33.0-35.0) g/dL Plt Count (150-450) 10^3/uL Neut % (Auto) (42.2-75.2) % Lymph % (Auto) (20.5-50.1) % [place] % (Auto) (2-8) % Eos % (Auto) (1.0-3.0) % Baso % (Auto) (0.0-1.0) % Add Manual Diff Neutrophils % (Manual) (42-75) % Band Neutrophils % % Lymphocytes % (Manual) (20-50) % Monocytes % (Manual) (2-8) % PT 9.7 (9.0-12.0) SEC INR 1.0 (0.9-1.2) APTT 29.0 (22.0-34.0) SEC D-Dimer, Quantitative (0-400) ng/mL Sodium (136-145) mmol/L Potassium (3.5-5.1) mmol/L Chloride (98-107) mmol/L Carbon Dioxide (21-32) mmol/L Anion Gap (7-13) mEq/L BUN (7-18) mg/dL Creatinine (0.55-1.02) mg/dL Est Cr Clr Drug Dosing Estimated GFR (MDRD) BUN/Creatinine Ratio (No establ ref range) Glucose (70-99) mg/dL Lactic Acid 1.3 (0.4-2.0) mmol/L Calcium (8.5-10.1) mg/dL Magnesium (1.8-2.4) mg/dL Ferritin 1629 H (8-252) mg/mL Total Bilirubin (0.2-1.0) mg/dL Direct Bilirubin (0.0-0.2) mg/dL AST (15-37) U/L ALT (14-59) U/L Alkaline Phosphatase (46-116) U/L Troponin I High Sens (<=51) pg/mL C-Reactive Protein (0.0-0.9) mg/dL Total Protein (6.4-8.2) g/dL Albumin (3.4-5.0) g/dL Globulin Albumin/Globulin Ratio 03/12/21 03/12/21 03/12/21 Range/Units 06:13 06:13 06:13 WBC 6.1 (5.0-10.0) 10^3/uL RBC 4.55 (4.2-5.4) 10^6/uL Hgb 12.9 D (12.0-16.0) g/dL Hct 40.9 (37.0-47.0) % MCV 89.9 (80-100) fL MCH 28.4 (27.0-34.0) pg MCHC 31.5 L (33.0-35.0) g/dL Plt Count 306 (150-450) 10^3/uL Neut % (Auto) (42.2-75.2) % Lymph % (Auto) (20.5-50.1) % [place] % (Auto) (2-8) % Eos % (Auto) (1.0-3.0) % Baso % (Auto) (0.0-1.0) % Add Manual Diff Neutrophils % (Manual) (42-75) % Band Neutrophils % % Lymphocytes % (Manual) (20-50) % Monocytes % (Manual) (2-8) % PT (9.0-12.0) SEC INR (0.9-1.2) APTT (22.0-34.0) SEC D-Dimer, Quantitative (0-400) ng/mL Sodium 140 (136-145) mmol/L Potassium 4.2 (3.5-5.1) mmol/L Chloride 101 (98-107) mmol/L Carbon Dioxide 30 (21-32) mmol/L Anion Gap 13.2 H (7-13) mEq/L BUN 8 (7-18) mg/dL Creatinine 0.78 (0.55-1.02) mg/dL Est Cr Clr Drug Dosing 76.85 Estimated GFR (MDRD) > 60 BUN/Creatinine Ratio (No establ ref range) Glucose 135 H (70-99) mg/dL Lactic Acid (0.4-2.0) mmol/L Calcium 8.4 L (8.5-10.1) mg/dL Magnesium 2.4 (1.8-2.4) mg/dL Ferritin (8-252) mg/mL Total Bilirubin (0.2-1.0) mg/dL Direct Bilirubin 0.2 (0.0-0.2) mg/dL AST (15-37) U/L ALT (14-59) U/L Alkaline Phosphatase (46-116) U/L Troponin I High Sens (<=51) pg/mL C-Reactive Protein (0.0-0.9) mg/dL Total Protein (6.4-8.2) g/dL Albumin (3.4-5.0) g/dL Globulin Albumin/Globulin Ratio Result Diagrams: 03/12/21 06:13 03/12/21 06:13 Sepsis Event Note - Evaluation Sepsis Screening Result: No Definite Risk - Focused Exam Vital Signs: Vital Signs Temp Pulse Pulse Resp BP BP BP 03/12/21 11:18 174 H 144/103 H 03/12/21 10:23 180 H 22 H 143/119 H 03/12/21 10:04 184 H 13 128/81 03/12/21 10:03 175 H 15 139/88 03/12/21 08:00 98.1 F 162 H 22 H 141/96 H 03/12/21 04:00 98.3 F 83 20 124/67 Pulse Ox 03/12/21 11:18 03/12/21 10:23 91 L 03/12/21 10:04 89 L 03/12/21 10:03 91 L 03/12/21 08:00 90 L 03/12/21 04:00 91 L - Problem List Review Problem List Initiated/Reviewed/Updated: Yes - My Orders Last 24 Hours: My Active Orders 03/11/21 18:51 Height and Weight [RC] 06 Oxygen Therapy [RC] PRN Up With Assistance [RC] ASDIRECTED VTE/DVT Education [RC] Vital Signs [RC] 00,04,08,12,16,20 Acetaminophen [TylenoL] 650 mg PO Q4H PRN Ondansetron [Zofran] 4 mg IVPUSH Q6H PRN polyethylene glycoL 3350 [MiraLAX] 17 gm PO DAILY PRN Isolation [COMM] Stat Resuscitation Status Routine 03/11/21 18:52 Cardiac Monitoring [RC] CONTINUOUS Intake and Output [RC] QSHIFT Pulse Oximetry [RC] CONTINUOUS 03/11/21 18:53 Positioning, Patient [RC] ASDIRECTED 03/11/21 18:55 Incentive Breathing [RT Incentive Spirometry] [RC] Q1HWA 03/11/21 19:00 dexAMETHasone [Decadron] 6 mg IVPUSH DAILY 03/12/21 08:31 Sodium Chloride 0.9% [Saline Flush] 10 ml FLUSH ASDIRECTED PRN 03/12/21 09:00 DULoxetine [Cymbalta] 90 mg PO DAILY 03/12/21 11:08 Metoprolol Tartrate [Lopressor] 5 mg IVPUSH Q6H PRN 03/12/21 11:30 Apixaban [Eliquis] 5 mg PO BID 03/12/21 19:00 BILIRUBIN DIRECT [CHEM] DAILY 03/12/21 20:00 Remdesivir 100 mg Sodium Chloride 0.9% [Normal Saline AdvBag] 100 ml IV Q24H 03/13/21 19:00 BILIRUBIN DIRECT [CHEM] DAILY 03/14/21 19:00 BILIRUBIN DIRECT [CHEM] DAILY 03/15/21 19:00 BILIRUBIN DIRECT [CHEM] DAILY - Plan Plan:: ACTIVE PROBLEMS: Covid 19 viral pneumonia acute respiratory failure with hypoxia 2/2 above - currently requiring supplemental oxygen to maintain saturations >90%, 7L oxymask this morning - pt refusing remdesivir and vaccine. requested ivermectin and hydroxychloroquine (request denied) Plan: - tele - wean oxygen as tolerated - aggressive IS 10x in a row every hour while awake - Prone as tolerated - dexamethasone and remdesivir per protocol (continue to offer remdesivir daily) - RT consulted to follow - recommend vaccination at discharge. atrial fibrillation with RVR Hx of palpitations, unspecified - Rate increased to 200 today. EKG initially appeared to be SVT. Cardizem 20mg IV push x1, adenosine 6mg x2 and 12mg x1 given with no change in rate. cardizem gtt started at 10mg/hr, increased to 15mg/hr and then 20mg/hr when HR remained in the 180-200 range. - [facility] cardiology contacted, strips sent, evaluation noted small irregularities after adenosine induced asystole consistent with atrial fibrillation with RVR Plan: - lopressor IV 2.5-5 mg every 6 hours for 24 hours then convert to PO short acting during hospital stay and convert again to toprol XL at discharge - eliquis 5mg bid started for anticoagulation - pt will require outpatient echo at discharge CHRONIC CONDITIONS: - unspecified depression: continue cymbalta - nicotine dependence, cigarettes, uncomplicated: smoking cessation counseling provided for 3-10 minutes. pt is working on quitting. nicotine replacement per protocol. Code status: Full code DVT prophylaxis: PO eliquis MDM/Interval Hx: afib with RVR today, managed as outlined above. anticoagulation started. love catheter placed when possible transfer was imminent, this can be removed prior to hs. Pt refusing remdesivir currently and requesting hydroxychloroquine and ivermectin, this request was refused based on lack of medical necessity. Feeling anxious 2/2 rapid heart rate, recovering with intervention. weaning oxygen as tolerated.
[2021-03-12] MEDS ORDERED: Metoprolol Tartrate 5 MG/5 ML SDV IVPUSH SCH (18:00)
[2021-03-12] MEDS: Metoprolol Tartrate 25 MG Tab PO SCH (18:28)
[2021-03-12] MEDS: REMDESIVIR 100 MG in Sodium Chloride 0.9% 100 ML IV SCH (21:43)
[2021-03-13] MEDS: Diltiazem 125 MG in Sodium Chloride 0.9% 100 ML IV SCH ×2 (03:52→18:09)
[2021-03-13] MEDS: Metoprolol Tartrate 25 MG Tab PO SCH ×2 (05:04→07:08)
--- NOTE | 2021-03-13 06:32 | PCM.PN ---
- General Info Date of Service: 03/13/21 Admission Dx/Problem (Free Text): Admission Diagnosis/Problem Admission Diagnosis/Problem covid 19 viral pneumonia, acute respiratory failure with hypoxia, atrial fibrillation with RVR Subjective Update: Patient states that she feels her breathing is stable. Again wanted to discuss alternative medications to treat her COVID-19 infection. Presented evidence as to why her current regimen of dexamethasone to severe has the most evidence- based guidance and recommendations. Patient states that she is significantly fatigued and has decreased appetite. Denies any abdominal pain, nausea or vomiting. States that she could feel palpitations last night when her atrial fibrillation had faster rates. Remainder review of systems is negative except for those listed above. - Patient Data Vitals - Most Recent: Last Vital Signs Temp 97.0 F 03/12/21 20:00 Pulse 156 H 03/13/21 05:04 Resp 20 03/13/21 04:00 BP 108/63 03/13/21 05:04 Pulse Ox 94 L 03/13/21 04:00 Weight - Most Recent: 171 lb 3.2 oz I&O - Last 24 Hours: Intake & Output 03/12/21 03/12/21 03/13/21 14:59 22:59 06:59 Intake Total 480 355 700 Output Total 2000 300 Balance 480 -1645 400 Lab Results Last 24 Hours: Laboratory Results - last 24 hr 03/12/21 03/12/21 03/12/21 Range/Units 06:13 06:13 06:13 WBC 6.1 (5.0-10.0) 10^3/uL RBC 4.55 (4.2-5.4) 10^6/uL Hgb 12.9 D (12.0-16.0) g/dL Hct 40.9 (37.0-47.0) % MCV 89.9 (80-100) fL MCH 28.4 (27.0-34.0) pg MCHC 31.5 L (33.0-35.0) g/dL Plt Count 306 (150-450) 10^3/uL Sodium 140 (136-145) mmol/L Potassium 4.2 (3.5-5.1) mmol/L Chloride 101 (98-107) mmol/L Carbon Dioxide 30 (21-32) mmol/L Anion Gap 13.2 H (7-13) mEq/L BUN 8 (7-18) mg/dL Creatinine 0.78 (0.55-1.02) mg/dL Est Cr Clr Drug Dosing 76.85 mL/min Estimated GFR (MDRD) > 60 Glucose 135 H (70-99) mg/dL Calcium 8.4 L (8.5-10.1) mg/dL Magnesium 2.4 (1.8-2.4) mg/dL Direct Bilirubin 0.2 (0.0-0.2) mg/dL Juanjose Results Last 24 Hours: Microbiology 03/11/21 15:35 Aerobic Blood Culture - Preliminary Blood - Arm, Left NO GROWTH AFTER 1 DAY Anaerobic Blood Culture - Preliminary NO GROWTH AFTER 1 DAY 03/11/21 15:32 Aerobic Blood Culture - Preliminary Blood - Venous - Iv Start NO GROWTH AFTER 1 DAY Anaerobic Blood Culture - Preliminary NO GROWTH AFTER 1 DAY Med Orders - Current: Current Medications Acetaminophen (Acetaminophen 325 Mg Tab) 650 mg PO Q4H PRN PRN Reason: Pain (Mild 1-3)/fever Last Admin: 03/11/21 21:01 Dose: 650 mg Documented by: Apixaban (Apixaban 5 Mg Tab) 5 mg PO BID [facility] Last Admin: 03/12/21 21:42 Dose: 5 mg Documented by: Dexamethasone (Dexamethasone 4 Mg/Ml Sdv) 6 mg IVPUSH DAILY [facility] Stop: 03/20/21 09:01 Last Admin: 03/12/21 09:08 Dose: 6 mg Documented by: Duloxetine HCl (Duloxetine 30 Mg Cap) 90 mg PO DAILY [facility] Last Admin: 03/12/21 09:00 Dose: 90 mg Documented by: Remdesivir 100 mg/ Sodium (Chloride) 100 mls @ 100 mls/hr IV Q24H [facility] Stop: 03/15/21 20:59 Last Admin: 03/12/21 21:43 Dose: 100 mls/hr Documented by: Diltiazem HCl 125 mg/ Sodium (Chloride) 125 mls @ 10 mls/hr IV TITRATE [facility]; Protocol Last Titration: 03/13/21 05:06 Dose: 10 mg/hr, 10 mls/hr Documented by: Metoprolol Tartrate (Metoprolol Tartrate 25 Mg Tab) 25 mg PO Q12H [facility] Last Admin: 03/13/21 05:04 Dose: 25 mg Documented by: Ondansetron HCl (Ondansetron 4 Mg/2 Ml Sdv) 4 mg IVPUSH Q6H PRN PRN Reason: Nausea/Vomiting Polyethylene Glycol (Polyethylene Glycol 3350 Powder 17 Gm Packet) 17 gm PO DAILY PRN PRN Reason: Constipation Sodium Chloride (Sodium Chloride 0.9% 10 Ml Syringe) 10 ml FLUSH ASDIRECTED PRN PRN Reason: Keep Vein Open Discontinued Medications Adenosine (Adenosine 6 Mg/2 Ml Sdv) 6 mg IVPUSH NOW ONE Stop: 03/12/21 09:36 Last Admin: 03/12/21 09:39 Dose: 6 mg Documented by: Adenosine (Adenosine 12 Mg/4 Ml Sdv) 12 mg IVPUSH NOW ONE Stop: 03/12/21 09:46 Last Admin: 03/12/21 09:47 Dose: 12 mg Documented by: Adenosine (Adenosine 6 Mg/2 Ml Sdv) 6 mg IVPUSH NOW ONE Stop: 03/12/21 09:43 Last Admin: 03/12/21 09:44 Dose: 6 mg Documented by: Diltiazem HCl (Diltiazem 25 Mg/5 Ml Sdv) 20 mg IVPUSH ONETIME ONE Stop: 03/12/21 09:15 Last Admin: 03/12/21 09:27 Dose: 20 mg Documented by: Enoxaparin Sodium (Enoxaparin 40 Mg/0.4 Ml Syringe) 40 mg SUBCUT BEDTIME [facility] Last Admin: 03/11/21 22:08 Dose: 40 mg Documented by: Remdesivir 200 mg/ Sodium (Chloride) 250 mls @ 250 mls/hr IV ONETIME ONE Stop: 03/11/21 20:59 Last Infusion: 03/11/21 22:11 Dose: Infused Documented by: Iopamidol (Iopamidol 755 Mg/Ml 100 Ml Bottle) 100 ml IVPUSH ONETIME ONE Stop: 03/11/21 17:47 Last Admin: 03/11/21 17:48 Dose: 73 ml Documented by: Metoprolol Tartrate (Metoprolol Tartrate 5 Mg/5 Ml Sdv) 5 mg IVPUSH Q6H PRN PRN Reason: Other Last Admin: 03/12/21 11:18 Dose: 5 mg Documented by: Metoprolol Tartrate (Metoprolol Tartrate 5 Mg/5 Ml Sdv) 5 mg IVPUSH Q6H [facility] Last Admin: 03/12/21 17:23 Dose: 5 mg Documented by: Promethazine HCl/Codeine (Codeine/Promethazine 10-6.25 Mg/5 Ml Syrup 5 Ml Ud Cup) 10 ml PO ONETIME ONE Stop: 03/11/21 15:58 Last Admin: 03/11/21 16:03 Dose: 10 ml Documented by: Sodium Chloride (Sodium Chloride 0.9% 10 Ml Syringe) 10 ml FLUSH ASDIRECTED PRN PRN Reason: Keep Vein Open Last Admin: 03/11/21 20:59 Dose: 10 ml Documented by: - Exam Quality Assessment: Supplemental Oxygen General: Alert, Oriented HEENT: Pupils Equal Neck: Supple Lungs: Decreased Breath Sounds (Moderate respiratory distress on nasal cannula, significant crackles in upper and lower lung franco) Cardiovascular: Irregular Rhythm, Tachycardia GI/Abdominal Exam: Normal Bowel Sounds, Soft Back Exam: Normal Inspection Extremities: Normal Inspection Peripheral Pulses: 2+: Radial (L), Radial (R) Skin: Warm, Dry Neurological: No New Focal Deficit Psy/Mental Status: Alert - Patient Data Lab Results Last 24 hrs: Laboratory Results - last 24 hr 03/12/21 03/12/21 03/12/21 Range/Units 06:13 06:13 06:13 WBC 6.1 (5.0-10.0) 10^3/uL RBC 4.55 (4.2-5.4) 10^6/uL Hgb 12.9 D (12.0-16.0) g/dL Hct 40.9 (37.0-47.0) % MCV 89.9 (80-100) fL MCH 28.4 (27.0-34.0) pg MCHC 31.5 L (33.0-35.0) g/dL Plt Count 306 (150-450) 10^3/uL Sodium 140 (136-145) mmol/L Potassium 4.2 (3.5-5.1) mmol/L Chloride 101 (98-107) mmol/L Carbon Dioxide 30 (21-32) mmol/L Anion Gap 13.2 H (7-13) mEq/L BUN 8 (7-18) mg/dL Creatinine 0.78 (0.55-1.02) mg/dL Est Cr Clr Drug Dosing 76.85 mL/min Estimated GFR (MDRD) > 60 Glucose 135 H (70-99) mg/dL Calcium 8.4 L (8.5-10.1) mg/dL Magnesium 2.4 (1.8-2.4) mg/dL Direct Bilirubin 0.2 (0.0-0.2) mg/dL Result Diagrams: 03/13/21 06:30 03/13/21 06:30 Juanjose Results Last 24 hrs: Microbiology 03/11/21 15:35 Aerobic Blood Culture - Preliminary Blood - Arm, Left NO GROWTH AFTER 1 DAY Anaerobic Blood Culture - Preliminary NO GROWTH AFTER 1 DAY 03/11/21 15:32 Aerobic Blood Culture - Preliminary Blood - Venous - Iv Start NO GROWTH AFTER 1 DAY Anaerobic Blood Culture - Preliminary NO GROWTH AFTER 1 DAY Sepsis Event Note - Evaluation Sepsis Screening Result: No Definite Risk - Focused Exam Vital Signs: Vital Signs Temp Pulse Pulse Resp BP BP Pulse Ox 03/13/21 05:04 156 H 108/63 03/13/21 04:00 119 H 20 101/66 94 L 03/13/21 00:00 110 H 22 H 112/56 L 94 L 03/12/21 20:00 97.0 F 133 H 16 147/125 H 95 03/12/21 18:52 95 03/12/21 18:51 Pulse Ox 03/13/21 05:04 03/13/21 04:00 03/13/21 00:00 03/12/21 20:00 03/12/21 18:52 03/12/21 18:51 95 - Problem List & Annotations (1) Atrial fibrillation with RVR SNOMED Code(s): 720199661867288 Code(s): I48.91 - UNSPECIFIED ATRIAL FIBRILLATION Status: Acute Current Visit: Yes (2) Acute respiratory failure due to COVID-19 SNOMED Code(s): 043876262 Code(s): U07.1 - COVID-19; J96.00 - ACUTE RESPIRATORY FAILURE, UNSP W HYPOXIA OR HYPERCAPNIA Status: Acute Current Visit: No (3) COVID-19 virus infection SNOMED Code(s): 754883122 Code(s): U07.1 - COVID-19 Status: Acute Current Visit: No - Problem List Review Problem List Initiated/Reviewed/Updated: Yes - My Orders Last 24 Hours: My Active Orders 03/12/21 18:15 Metoprolol Tartrate [Lopressor] 25 mg PO Q12H - Plan Plan:: ACTIVE PROBLEMS: Covid 19 viral pneumonia # Acute respiratory failure with hypoxia 2/2 above - currently requiring supplemental oxygen to maintain saturations >90%, 10L oxymask this morning - pt initially refused remdesivir. requested ivermectin and hydroxychloroquine (request denied based on lack of evidence available) - was agreeable and started on remdesivir 03-12-21 - dexamethasone and remdesivir per protocol - lab monitoring according to protocol - telemetry - wean oxygen as tolerated - aggressive IS 10x in a row every hour while awake - Prone as tolerated - RT consulted to follow - recommend vaccination 90 days post infection # Atrial fibrillation with RVR Hx of palpitations, unspecified - Rate increased to 200 03/12/21 -EKG initially appeared to be SVT. Cardizem 20mg IV push x1, adenosine 6mg x2 and 12mg x1 given with no change in rate. diltiazem gtt - [facility] contacted, strips sent, evaluation noted small irregularities after adenosine induced asystole consistent with atrial fibrillation with RVR - continue metoprolol PO with goal to uptitrate - wean diltizem drip - eliquis 5mg bid - pt will require outpatient echo at discharge CHRONIC CONDITIONS: - unspecified depression: continue cymbalta - nicotine dependence, cigarettes, uncomplicated: smoking cessation counseling provided for 3-10 minutes. pt is working on quitting. nicotine replacement per protocol. Code status: Full code DVT prophylaxis: PO eliquis Prognosis:continue inpatient status for acute hypoxic respiratory failure secondary to COVID-19 pneumonia
[2021-03-13 07:17] LABS: CHLORIDE,CL 103 mmol/L (98-107); SODIUM,NA 140 mmol/L (136-145)
[2021-03-13] MEDS: DULoxetine 30 MG Cap PO SCH (08:23)
[2021-03-13] MEDS: Dexamethasone 4 MG/ML SDV IVPUSH SCH (08:23)
[2021-03-13] MEDS: Apixaban 5 MG Tab PO SCH ×2 (08:23→20:11)
[2021-03-13] MEDS: Metoprolol Tartrate 50 MG Tab PO SCH ×2 (12:42→20:12)
[2021-03-13] MEDS ORDERED: Water For Injection, Sterile 20 ML ONE (19:45)
[2021-03-13] MEDS: REMDESIVIR 100 MG in Sodium Chloride 0.9% 100 ML IV SCH (20:12)
--- NOTE | 2021-03-14 07:02 | PCM.PN ---
- General Info Date of Service: 03/14/21 Admission Dx/Problem (Free Text): Admission Diagnosis/Problem Admission Diagnosis/Problem covid 19 viral pneumonia, acute respiratory failure with hypoxia, atrial fibrillation with RVR Subjective Update: Patient states that she feels her breathing is stable. States that she could feel palpitations last night when her atrial fibrillation had faster rates. Patient did not have any other questions or concerns today. Remainder review of systems is negative except for those listed above. - Patient Data Vitals - Most Recent: Last Vital Signs Temp 97.9 F 03/14/21 04:00 Pulse 77 03/14/21 04:00 Resp 20 03/14/21 04:00 BP 101/64 03/14/21 04:00 Pulse Ox 92 L 03/14/21 04:00 Weight - Most Recent: 171 lb 3.2 oz I&O - Last 24 Hours: Intake & Output 03/13/21 03/14/21 03/14/21 22:59 06:59 14:59 Intake Total 440 120 Output Total 350 225 Balance 90 -105 Lab Results Last 24 Hours: Laboratory Results - last 24 hr 03/13/21 03/13/21 03/13/21 Range/Units 06:30 06:30 06:45 WBC 14.4 H (5.0-10.0) 10^3/uL RBC 4.65 (4.2-5.4) 10^6/uL Hgb 13.2 (12.0-16.0) g/dL Hct 41.6 (37.0-47.0) % MCV 89.5 (80-100) fL MCH 28.4 (27.0-34.0) pg MCHC 31.7 L (33.0-35.0) g/dL Plt Count 382 D (150-450) 10^3/uL Sodium 140 (136-145) mmol/L Potassium 4.0 (3.5-5.1) mmol/L Chloride 103 (98-107) mmol/L Carbon Dioxide 27 (21-32) mmol/L Anion Gap 14.0 H (7-13) mEq/L BUN 13 (7-18) mg/dL Creatinine 0.68 (0.55-1.02) mg/dL Est Cr Clr Drug Dosing 88.16 mL/min Estimated GFR (MDRD) > 60 Glucose 144 H (70-99) mg/dL Calcium 8.7 (8.5-10.1) mg/dL Magnesium 2.4 (1.8-2.4) mg/dL Juanjose Results Last 24 Hours: Microbiology 03/11/21 15:35 Aerobic Blood Culture - Preliminary Blood - Arm, Left NO GROWTH AFTER 2 DAYS Anaerobic Blood Culture - Preliminary NO GROWTH AFTER 2 DAYS 03/11/21 15:32 Aerobic Blood Culture - Preliminary Blood - Venous - Iv Start NO GROWTH AFTER 2 DAYS Anaerobic Blood Culture - Preliminary NO GROWTH AFTER 2 DAYS Med Orders - Current: Current Medications Acetaminophen (Acetaminophen 325 Mg Tab) 650 mg PO Q4H PRN PRN Reason: Pain (Mild 1-3)/fever Last Admin: 03/11/21 21:01 Dose: 650 mg Documented by: Apixaban (Apixaban 5 Mg Tab) 5 mg PO BID [facility] Last Admin: 03/13/21 20:11 Dose: 5 mg Documented by: Dexamethasone (Dexamethasone 4 Mg/Ml Sdv) 6 mg IVPUSH DAILY [facility] Stop: 03/20/21 09:01 Last Admin: 03/13/21 08:23 Dose: 6 mg Documented by: Duloxetine HCl (Duloxetine 30 Mg Cap) 90 mg PO DAILY [facility] Last Admin: 03/13/21 08:23 Dose: 90 mg Documented by: Remdesivir 100 mg/ Sodium (Chloride) 100 mls @ 100 mls/hr IV Q24H [facility] Stop: 03/15/21 20:59 Last Admin: 03/13/21 20:12 Dose: 100 mls/hr Documented by: Diltiazem HCl 125 mg/ Sodium (Chloride) 125 mls @ 10 mls/hr IV TITRATE [facility]; Protocol Last Titration: 03/14/21 01:52 Dose: 10 mg/hr, 10 mls/hr Documented by: Metoprolol Tartrate (Metoprolol Tartrate 50 Mg Tab) 50 mg PO Q12HR [facility] Last Admin: 03/13/21 20:12 Dose: 50 mg Documented by: Ondansetron HCl (Ondansetron 4 Mg/2 Ml Sdv) 4 mg IVPUSH Q6H PRN PRN Reason: Nausea/Vomiting Polyethylene Glycol (Polyethylene Glycol 3350 Powder 17 Gm Packet) 17 gm PO DAILY PRN PRN Reason: Constipation Sodium Chloride (Sodium Chloride 0.9% 10 Ml Syringe) 10 ml FLUSH ASDIRECTED PRN PRN Reason: Keep Vein Open Discontinued Medications Adenosine (Adenosine 6 Mg/2 Ml Sdv) 6 mg IVPUSH NOW ONE Stop: 03/12/21 09:36 Last Admin: 03/12/21 09:39 Dose: 6 mg Documented by: Adenosine (Adenosine 12 Mg/4 Ml Sdv) 12 mg IVPUSH NOW ONE Stop: 03/12/21 09:46 Last Admin: 03/12/21 09:47 Dose: 12 mg Documented by: Adenosine (Adenosine 6 Mg/2 Ml Sdv) 6 mg IVPUSH NOW ONE Stop: 03/12/21 09:43 Last Admin: 03/12/21 09:44 Dose: 6 mg Documented by: Diltiazem HCl (Diltiazem 25 Mg/5 Ml Sdv) 20 mg IVPUSH ONETIME ONE Stop: 03/12/21 09:15 Last Admin: 03/12/21 09:27 Dose: 20 mg Documented by: Enoxaparin Sodium (Enoxaparin 40 Mg/0.4 Ml Syringe) 40 mg SUBCUT BEDTIME [facility] Last Admin: 03/11/21 22:08 Dose: 40 mg Documented by: Remdesivir 200 mg/ Sodium (Chloride) 250 mls @ 250 mls/hr IV ONETIME ONE Stop: 03/11/21 20:59 Last Infusion: 03/11/21 22:11 Dose: Infused Documented by: Sterile Water (Sterile Water For Injection) Confirm Administered Dose 20 mls @ as directed .ROUTE .STK-MED ONE Stop: 03/13/21 19:46 Last Admin: 03/13/21 22:05 Dose: Not Given Documented by: Iopamidol (Iopamidol 755 Mg/Ml 100 Ml Bottle) 100 ml IVPUSH ONETIME ONE Stop: 03/11/21 17:47 Last Admin: 03/11/21 17:48 Dose: 73 ml Documented by: Metoprolol Tartrate (Metoprolol Tartrate 5 Mg/5 Ml Sdv) 5 mg IVPUSH Q6H PRN PRN Reason: Other Last Admin: 03/12/21 11:18 Dose: 5 mg Documented by: Metoprolol Tartrate (Metoprolol Tartrate 5 Mg/5 Ml Sdv) 5 mg IVPUSH Q6H [facility] Last Admin: 03/12/21 17:23 Dose: 5 mg Documented by: Metoprolol Tartrate (Metoprolol Tartrate 25 Mg Tab) 25 mg PO Q12H [facility] Last Admin: 03/13/21 07:08 Dose: Not Given Documented by: Promethazine HCl/Codeine (Codeine/Promethazine 10-6.25 Mg/5 Ml Syrup 5 Ml Ud Cup) 10 ml PO ONETIME ONE Stop: 03/11/21 15:58 Last Admin: 03/11/21 16:03 Dose: 10 ml Documented by: Sodium Chloride (Sodium Chloride 0.9% 10 Ml Syringe) 10 ml FLUSH ASDIRECTED PRN PRN Reason: Keep Vein Open Last Admin: 03/11/21 20:59 Dose: 10 ml Documented by: - Exam Quality Assessment: Supplemental Oxygen Urinary Catheter Total Time: 1Days 5Hours General: Alert, Oriented HEENT: Pupils Equal Neck: Supple Lungs: Decreased Breath Sounds, Crackles, Wheezing Cardiovascular: Irregular Rhythm, Tachycardia GI/Abdominal Exam: Normal Bowel Sounds, Soft Back Exam: Normal Inspection Extremities: Normal Inspection Peripheral Pulses: 2+: Radial (L), Radial (R) Skin: Warm, Dry Neurological: No New Focal Deficit Psy/Mental Status: Alert - Patient Data Lab Results Last 24 hrs: Laboratory Results - last 24 hr 03/13/21 03/13/21 03/13/21 Range/Units 06:30 06:30 06:45 WBC 14.4 H (5.0-10.0) 10^3/uL RBC 4.65 (4.2-5.4) 10^6/uL Hgb 13.2 (12.0-16.0) g/dL Hct 41.6 (37.0-47.0) % MCV 89.5 (80-100) fL MCH 28.4 (27.0-34.0) pg MCHC 31.7 L (33.0-35.0) g/dL Plt Count 382 D (150-450) 10^3/uL Sodium 140 (136-145) mmol/L Potassium 4.0 (3.5-5.1) mmol/L Chloride 103 (98-107) mmol/L Carbon Dioxide 27 (21-32) mmol/L Anion Gap 14.0 H (7-13) mEq/L BUN 13 (7-18) mg/dL Creatinine 0.68 (0.55-1.02) mg/dL Est Cr Clr Drug Dosing 88.16 mL/min Estimated GFR (MDRD) > 60 Glucose 144 H (70-99) mg/dL Calcium 8.7 (8.5-10.1) mg/dL Magnesium 2.4 (1.8-2.4) mg/dL Result Diagrams: 03/14/21 06:25 03/14/21 06:25 Juanjose Results Last 24 hrs: Microbiology 03/11/21 15:35 Aerobic Blood Culture - Preliminary Blood - Arm, Left NO GROWTH AFTER 2 DAYS Anaerobic Blood Culture - Preliminary NO GROWTH AFTER 2 DAYS 03/11/21 15:32 Aerobic Blood Culture - Preliminary Blood - Venous - Iv Start NO GROWTH AFTER 2 DAYS Anaerobic Blood Culture - Preliminary NO GROWTH AFTER 2 DAYS Sepsis Event Note - Evaluation Sepsis Screening Result: No Definite Risk - Focused Exam Vital Signs: Vital Signs Temp Pulse Pulse Resp BP BP Pulse Ox 03/14/21 04:00 97.9 F 77 20 101/64 92 L 03/14/21 00:00 98 F 88 16 99/59 L 94 L 03/13/21 20:12 124 H 111/80 03/13/21 20:00 97.7 F 124 H 19 111/80 95 - Problem List & Annotations (1) Atrial fibrillation with RVR SNOMED Code(s): 648586274253707 Code(s): I48.91 - UNSPECIFIED ATRIAL FIBRILLATION Status: Acute Current Visit: Yes (2) Acute respiratory failure due to COVID-19 SNOMED Code(s): 440350421 Code(s): U07.1 - COVID-19; J96.00 - ACUTE RESPIRATORY FAILURE, UNSP W HYPOXIA OR HYPERCAPNIA Status: Acute Current Visit: No (3) COVID-19 virus infection SNOMED Code(s): 469283800 Code(s): U07.1 - COVID-19 Status: Acute Current Visit: No - Problem List Review Problem List Initiated/Reviewed/Updated: Yes - My Orders Last 24 Hours: My Active Orders 03/13/21 12:01 Metoprolol Tartrate [Lopressor] 50 mg PO Q12HR 03/13/21 13:40 Supplement (Dietary) [Dietary Supplements] [RC] TIDAC 03/14/21 06:25 ALANINE AMINOTRANSFERASE,ALT [CHEM] AM - Plan Plan:: ACTIVE PROBLEMS: Covid 19 viral pneumonia # Acute respiratory failure with hypoxia 2/2 above - currently requiring supplemental oxygen to maintain saturations >90%, 14L oxymask this morning - pt initially refused remdesivir. requested ivermectin and hydroxychloroquine (request denied based on lack of evidence available) - was agreeable and started on remdesivir 03-12-21 - dexamethasone and remdesivir per protocol - lab monitoring according to protocol - telemetry - wean oxygen as tolerated - aggressive IS 10x in a row every hour while awake - Prone as tolerated - RT consulted to follow - Recommend vaccination 90 days post infection # Atrial fibrillation with RVR Hx of palpitations, unspecified - Rate increased to 200 03/12/21 -EKG initially appeared to be SVT. Cardizem 20mg IV push x1, adenosine 6mg x2 and 12mg x1 given with no change in rate. diltiazem gtt - [facility] cardiology contacted, strips sent, evaluation noted small irregularities after adenosine induced asystole consistent with atrial fibrillation with RVR - continue metoprolol PO with goal to uptitrate - increased to 50 mg PO Q6 - wean diltizem drip - eliquis 5mg bid - pt will require outpatient echo at discharge CHRONIC CONDITIONS: - unspecified depression: continue cymbalta - nicotine dependence, cigarettes, uncomplicated: nicotine replacement per protocol. Code status: Full code DVT prophylaxis: PO eliquis Prognosis:continue inpatient status for acute hypoxic respiratory failure secondary to COVID-19 pneumonia, diltiazem drip due to afib with rvr
[2021-03-14 07:09] LABS: ANION GAP 12.1 mEq/L (7-13); CHLORIDE,CL 102 mmol/L (98-107); SODIUM,NA 138 mmol/L (136-145)
[2021-03-14] MEDS: Metoprolol Tartrate 50 MG Tab PO SCH ×3 (08:16→20:06)
[2021-03-14] MEDS: DULoxetine 30 MG Cap PO SCH (08:18)
[2021-03-14] MEDS ORDERED: Metoprolol Tartrate 5 MG/5 ML SDV IVPUSH ONE (08:18)
[2021-03-14] MEDS: Apixaban 5 MG Tab PO SCH ×2 (08:18→20:06)
[2021-03-14] MEDS: Dexamethasone 4 MG/ML SDV IVPUSH SCH (08:18)
[2021-03-14] MEDS: Diltiazem 125 MG in Sodium Chloride 0.9% 100 ML IV SCH ×2 (08:36→16:02)
[2021-03-14] MEDS: REMDESIVIR 100 MG in Sodium Chloride 0.9% 100 ML IV SCH (20:07)
[2021-03-15] MEDS: Metoprolol Tartrate 50 MG Tab PO SCH ×4 (01:55→20:09)
--- NOTE | 2021-03-15 06:19 | PCM.PN ---
- General Info Date of Service: 03/15/21 Admission Dx/Problem (Free Text): Admission Diagnosis/Problem Admission Diagnosis/Problem covid 19 viral pneumonia, acute respiratory failure with hypoxia, atrial fibrillation with RVR Subjective Update: Patient states that she feels her breathing is stable. States that her palpitations are more intermittent but still noticeable. Overall patient thought she had some increased appetite and overall increased energy today. Remainder review of systems is negative except for those listed above. - Patient Data Vitals - Most Recent: Last Vital Signs Temp 98.8 F 03/15/21 04:00 Pulse 88 03/15/21 04:00 Resp 20 03/15/21 04:00 BP 99/61 03/15/21 04:00 Pulse Ox 95 03/15/21 04:00 Weight - Most Recent: 171 lb 8 oz I&O - Last 24 Hours: Intake & Output 03/14/21 03/14/21 03/15/21 14:59 22:59 06:59 Intake Total 360 500 Output Total 1100 Balance 360 -600 Lab Results Last 24 Hours: Laboratory Results - last 24 hr 03/14/21 03/14/21 Range/Units 06:25 06:25 WBC 15.2 H (5.0-10.0) 10^3/uL RBC 4.52 (4.2-5.4) 10^6/uL Hgb 12.8 (12.0-16.0) g/dL Hct 40.5 (37.0-47.0) % MCV 89.6 (80-100) fL MCH 28.3 (27.0-34.0) pg MCHC 31.6 L (33.0-35.0) g/dL Plt Count 420 (150-450) 10^3/uL Sodium 138 (136-145) mmol/L Potassium 4.1 (3.5-5.1) mmol/L Chloride 102 (98-107) mmol/L Carbon Dioxide 28 (21-32) mmol/L Anion Gap 12.1 (7-13) mEq/L BUN 15 (7-18) mg/dL Creatinine 0.67 (0.55-1.02) mg/dL Est Cr Clr Drug Dosing 89.47 mL/min Estimated GFR (MDRD) > 60 Glucose 143 H (70-99) mg/dL Calcium 8.5 (8.5-10.1) mg/dL ALT 88 H (14-59) U/L Juanjose Results Last 24 Hours: Microbiology 03/11/21 15:35 Aerobic Blood Culture - Preliminary Blood - Arm, Left NO GROWTH AFTER 3 DAYS Anaerobic Blood Culture - Preliminary NO GROWTH AFTER 3 DAYS 03/11/21 15:32 Aerobic Blood Culture - Preliminary Blood - Venous - Iv Start NO GROWTH AFTER 3 DAYS Anaerobic Blood Culture - Preliminary NO GROWTH AFTER 3 DAYS Med Orders - Current: Current Medications Acetaminophen (Acetaminophen 325 Mg Tab) 650 mg PO Q4H PRN PRN Reason: Pain (Mild 1-3)/fever Last Admin: 03/11/21 21:01 Dose: 650 mg Documented by: Apixaban (Apixaban 5 Mg Tab) 5 mg PO BID [facility] Last Admin: 03/14/21 20:06 Dose: 5 mg Documented by: Dexamethasone (Dexamethasone 4 Mg/Ml Sdv) 6 mg IVPUSH DAILY [facility] Stop: 03/20/21 09:01 Last Admin: 03/14/21 08:18 Dose: 6 mg Documented by: Duloxetine HCl (Duloxetine 30 Mg Cap) 90 mg PO DAILY [facility] Last Admin: 03/14/21 08:18 Dose: 90 mg Documented by: Remdesivir 100 mg/ Sodium (Chloride) 100 mls @ 100 mls/hr IV Q24H [facility] Stop: 03/15/21 20:59 Last Admin: 03/14/21 20:07 Dose: 100 mls/hr Documented by: Diltiazem HCl 125 mg/ Sodium (Chloride) 125 mls @ 10 mls/hr IV TITRATE [facility]; Protocol Last Admin: 03/14/21 16:02 Dose: 10 mg/hr, 10 mls/hr Documented by: Metoprolol Tartrate (Metoprolol Tartrate 50 Mg Tab) 50 mg PO Q6H [facility] Last Admin: 03/15/21 01:55 Dose: 50 mg Documented by: Ondansetron HCl (Ondansetron 4 Mg/2 Ml Sdv) 4 mg IVPUSH Q6H PRN PRN Reason: Nausea/Vomiting Polyethylene Glycol (Polyethylene Glycol 3350 Powder 17 Gm Packet) 17 gm PO DAILY PRN PRN Reason: Constipation Sodium Chloride (Sodium Chloride 0.9% 10 Ml Syringe) 10 ml FLUSH ASDIRECTED PRN PRN Reason: Keep Vein Open Discontinued Medications Adenosine (Adenosine 6 Mg/2 Ml Sdv) 6 mg IVPUSH NOW ONE Stop: 03/12/21 09:36 Last Admin: 03/12/21 09:39 Dose: 6 mg Documented by: Adenosine (Adenosine 12 Mg/4 Ml Sdv) 12 mg IVPUSH NOW ONE Stop: 03/12/21 09:46 Last Admin: 03/12/21 09:47 Dose: 12 mg Documented by: Adenosine (Adenosine 6 Mg/2 Ml Sdv) 6 mg IVPUSH NOW ONE Stop: 03/12/21 09:43 Last Admin: 03/12/21 09:44 Dose: 6 mg Documented by: Diltiazem HCl (Diltiazem 25 Mg/5 Ml Sdv) 20 mg IVPUSH ONETIME ONE Stop: 03/12/21 09:15 Last Admin: 03/12/21 09:27 Dose: 20 mg Documented by: Enoxaparin Sodium (Enoxaparin 40 Mg/0.4 Ml Syringe) 40 mg SUBCUT BEDTIME [facility] Last Admin: 03/11/21 22:08 Dose: 40 mg Documented by: Remdesivir 200 mg/ Sodium (Chloride) 250 mls @ 250 mls/hr IV ONETIME ONE Stop: 03/11/21 20:59 Last Infusion: 03/11/21 22:11 Dose: Infused Documented by: Sterile Water (Sterile Water For Injection) Confirm Administered Dose 20 mls @ as directed .ROUTE .STK-MED ONE Stop: 03/13/21 19:46 Last Admin: 03/13/21 22:05 Dose: Not Given Documented by: Iopamidol (Iopamidol 755 Mg/Ml 100 Ml Bottle) 100 ml IVPUSH ONETIME ONE Stop: 03/11/21 17:47 Last Admin: 03/11/21 17:48 Dose: 73 ml Documented by: Metoprolol Tartrate (Metoprolol Tartrate 5 Mg/5 Ml Sdv) 5 mg IVPUSH Q6H PRN PRN Reason: Other Last Admin: 03/12/21 11:18 Dose: 5 mg Documented by: Metoprolol Tartrate (Metoprolol Tartrate 5 Mg/5 Ml Sdv) 5 mg IVPUSH Q6H [facility] Last Admin: 03/12/21 17:23 Dose: 5 mg Documented by: Metoprolol Tartrate (Metoprolol Tartrate 25 Mg Tab) 25 mg PO Q12H [facility] Last Admin: 03/13/21 07:08 Dose: Not Given Documented by: Metoprolol Tartrate (Metoprolol Tartrate 50 Mg Tab) 50 mg PO Q12HR [facility] Last Admin: 03/14/21 08:16 Dose: 50 mg Documented by: Metoprolol Tartrate (Metoprolol Tartrate 5 Mg/5 Ml Sdv) 5 mg IVPUSH ONETIME ONE Stop: 03/14/21 08:19 Last Admin: 03/14/21 08:38 Dose: 5 mg Documented by: Promethazine HCl/Codeine (Codeine/Promethazine 10-6.25 Mg/5 Ml Syrup 5 Ml Ud Cup) 10 ml PO ONETIME ONE Stop: 03/11/21 15:58 Last Admin: 03/11/21 16:03 Dose: 10 ml Documented by: Sodium Chloride (Sodium Chloride 0.9% 10 Ml Syringe) 10 ml FLUSH ASDIRECTED PRN PRN Reason: Keep Vein Open Last Admin: 03/11/21 20:59 Dose: 10 ml Documented by: - Exam Quality Assessment: Supplemental Oxygen Urinary Catheter Total Time: 2Days 10Hours General: Alert, Oriented HEENT: Pupils Equal Neck: Supple Lungs: Decreased Breath Sounds, Crackles Cardiovascular: Regular Rate, Irregular Rhythm GI/Abdominal Exam: Normal Bowel Sounds, Soft, Non-Tender Extremities: Normal Range of Motion Peripheral Pulses: 2+: Radial (L), Radial (R) Skin: Warm Neurological: No New Focal Deficit Psy/Mental Status: Alert - Patient Data Lab Results Last 24 hrs: Laboratory Results - last 24 hr 03/14/21 03/14/21 Range/Units 06:25 06:25 WBC 15.2 H (5.0-10.0) 10^3/uL RBC 4.52 (4.2-5.4) 10^6/uL Hgb 12.8 (12.0-16.0) g/dL Hct 40.5 (37.0-47.0) % MCV 89.6 (80-100) fL MCH 28.3 (27.0-34.0) pg MCHC 31.6 L (33.0-35.0) g/dL Plt Count 420 (150-450) 10^3/uL Sodium 138 (136-145) mmol/L Potassium 4.1 (3.5-5.1) mmol/L Chloride 102 (98-107) mmol/L Carbon Dioxide 28 (21-32) mmol/L Anion Gap 12.1 (7-13) mEq/L BUN 15 (7-18) mg/dL Creatinine 0.67 (0.55-1.02) mg/dL Est Cr Clr Drug Dosing 89.47 mL/min Estimated GFR (MDRD) > 60 Glucose 143 H (70-99) mg/dL Calcium 8.5 (8.5-10.1) mg/dL ALT 88 H (14-59) U/L Result Diagrams: 03/14/21 06:25 03/14/21 06:25 Juanjose Results Last 24 hrs: Microbiology 03/11/21 15:35 Aerobic Blood Culture - Preliminary Blood - Arm, Left NO GROWTH AFTER 3 DAYS Anaerobic Blood Culture - Preliminary NO GROWTH AFTER 3 DAYS 03/11/21 15:32 Aerobic Blood Culture - Preliminary Blood - Venous - Iv Start NO GROWTH AFTER 3 DAYS Anaerobic Blood Culture - Preliminary NO GROWTH AFTER 3 DAYS Sepsis Event Note - Evaluation Sepsis Screening Result: No Definite Risk - Focused Exam Vital Signs: Vital Signs Temp Pulse Pulse Resp BP BP Pulse Ox 03/15/21 04:00 98.8 F 88 20 99/61 95 03/15/21 01:55 90 105/56 L 03/15/21 00:00 92 20 102/65 95 03/14/21 20:06 106 H 102/64 03/14/21 20:00 96.4 F L 76 17 98/64 93 L - Problem List & Annotations (1) Atrial fibrillation with RVR SNOMED Code(s): 624005693720431 Code(s): I48.91 - UNSPECIFIED ATRIAL FIBRILLATION Status: Acute Current Visit: Yes (2) Acute respiratory failure due to COVID-19 SNOMED Code(s): 306281766 Code(s): U07.1 - COVID-19; J96.00 - ACUTE RESPIRATORY FAILURE, UNSP W HYPOXIA OR HYPERCAPNIA Status: Acute Current Visit: No (3) COVID-19 virus infection SNOMED Code(s): 765003768 Code(s): U07.1 - COVID-19 Status: Acute Current Visit: No - Problem List Review Problem List Initiated/Reviewed/Updated: Yes - My Orders Last 24 Hours: My Active Orders 03/14/21 14:00 Metoprolol Tartrate [Lopressor] 50 mg PO Q6H - Plan Plan:: ACTIVE PROBLEMS: Covid 19 viral pneumonia # Acute respiratory failure with hypoxia 2/2 above - currently requiring HFNC - currently maintaining oxygen saturations on 73 FiO2 40 L HFNC - pt initially refused remdesivir. requested ivermectin and hydroxychloroquine (request denied based on lack of evidence available) - was agreeable and started on remdesivir 03-12-21 - dexamethasone and remdesivir per protocol - lab monitoring according to protocol - telemetry - wean oxygen as tolerated - aggressive IS 10x in a row every hour while awake - Prone as tolerated - RT consulted to follow - Recommend vaccination 90 days post infection # Atrial fibrillation with RVR Hx of palpitations, unspecified - Rate increased to 200 03/12/21 -EKG initially appeared to be SVT. Cardizem 20mg IV push x1, adenosine 6mg x2 and 12mg x1 given with no change in rate. diltiazem gtt - [facility] cardiology contacted 03/12/21, strips sent, evaluation noted small irregularities after adenosine induced asystole consistent with atrial fibrillation with RVR - continue metoprolol PO with goal to uptitrate - increased to 75 mg PO Q6 - wean diltiazem drip - patient may require PO diltiazem - eliquis 5mg bid - pt will require outpatient echo at discharge CHRONIC CONDITIONS: - unspecified depression: continue cymbalta - nicotine dependence, cigarettes, uncomplicated: nicotine replacement per pr otocol. Code status: Full code DVT prophylaxis: PO eliquis Prognosis:continue inpatient status for acute hypoxic respiratory failure secondary to COVID-19 pneumonia, diltiazem drip due to afib with rvr
[2021-03-15] MEDS ORDERED: Metoprolol Tartrate 25 MG Tab PO ONE (09:54)
[2021-03-15] MEDS: DULoxetine 30 MG Cap PO SCH (10:06)
[2021-03-15] MEDS: Apixaban 5 MG Tab PO SCH ×2 (10:06→20:09)
[2021-03-15] MEDS: Dexamethasone 4 MG/ML SDV IVPUSH SCH (10:08)
[2021-03-15] MEDS: Diltiazem 125 MG in Sodium Chloride 0.9% 100 ML IV SCH (10:10)
[2021-03-15] MEDS: REMDESIVIR 100 MG in Sodium Chloride 0.9% 100 ML IV SCH (20:13)
[2021-03-16] MEDS: Metoprolol Tartrate 50 MG Tab PO SCH ×4 (03:11→17:46)
[2021-03-16 06:23] LABS: ANION GAP 15.4 mEq/L (7-13); CHLORIDE,CL 103 mmol/L (98-107); SODIUM,NA 140 mmol/L (136-145)
--- NOTE | 2021-03-16 07:02 | PCM.PN ---
- General Info Date of Service: 03/16/21 Admission Dx/Problem (Free Text): Admission Diagnosis/Problem Admission Diagnosis/Problem covid 19 viral pneumonia, acute respiratory failure with hypoxia, atrial fibrillation with RVR Subjective Update: Patient states that she feels her breathing is stable to improved. States that her palpitations are more intermittent but still noticeable. Patient has increased energy today and overall improved mood. Had a prolonged discussion about discharge planning has to happen prior to patient being able to discharge. Patient denies any abdominal pain, nausea or vomiting. States that her appetite is continued to improve. Remainder review of systems is negative except for those listed above. - Patient Data Vitals - Most Recent: Last Vital Signs Temp 97.8 F 03/16/21 04:00 Pulse 102 H 03/16/21 04:00 Resp 20 03/16/21 04:00 BP 132/86 03/16/21 04:00 Pulse Ox 97 03/16/21 00:00 Weight - Most Recent: 181 lb I&O - Last 24 Hours: Intake & Output 03/15/21 03/16/21 03/16/21 22:59 06:59 14:59 Intake Total 390 540 Balance 390 540 Lab Results Last 24 Hours: Laboratory Results - last 24 hr 03/16/21 03/16/21 Range/Units 05:10 05:10 WBC 16.4 H (5.0-10.0) 10^3/uL Sodium 140 (136-145) mmol/L Potassium 4.4 (3.5-5.1) mmol/L Chloride 103 (98-107) mmol/L Carbon Dioxide 26 (21-32) mmol/L Anion Gap 15.4 H (7-13) mEq/L BUN 16 (7-18) mg/dL Creatinine 0.65 (0.55-1.02) mg/dL Est Cr Clr Drug Dosing 92.23 mL/min Estimated GFR (MDRD) > 60 Glucose 114 H (70-99) mg/dL Calcium 8.0 L (8.5-10.1) mg/dL Magnesium 2.3 (1.8-2.4) mg/dL Juanjose Results Last 24 Hours: Microbiology 03/11/21 15:35 Aerobic Blood Culture - Preliminary Blood - Arm, Left NO GROWTH AFTER 4 DAYS Anaerobic Blood Culture - Preliminary NO GROWTH AFTER 4 DAYS 03/11/21 15:32 Aerobic Blood Culture - Preliminary Blood - Venous - Iv Start NO GROWTH AFTER 4 DAYS Anaerobic Blood Culture - Preliminary NO GROWTH AFTER 4 DAYS Med Orders - Current: Current Medications Acetaminophen (Acetaminophen 325 Mg Tab) 650 mg PO Q4H PRN PRN Reason: Pain (Mild 1-3)/fever Last Admin: 03/11/21 21:01 Dose: 650 mg Documented by: Apixaban (Apixaban 5 Mg Tab) 5 mg PO BID [facility] Last Admin: 03/15/21 20:09 Dose: 5 mg Documented by: Dexamethasone (Dexamethasone 6 Mg Tablet) 6 mg PO DAILY@0800 [facility] Stop: 03/20/21 08:01 Duloxetine HCl (Duloxetine 30 Mg Cap) 90 mg PO DAILY [facility] Last Admin: 03/15/21 10:06 Dose: 90 mg Documented by: Diltiazem HCl 125 mg/ Sodium (Chloride) 125 mls @ 10 mls/hr IV TITRATE [facility]; Protocol Last Titration: 03/15/21 10:10 Dose: 5 mg/hr, 5 mls/hr Documented by: Metoprolol Tartrate (Metoprolol Tartrate 50 Mg Tab) 75 mg PO Q6H [facility] Last Admin: 03/16/21 03:11 Dose: 75 mg Documented by: Ondansetron HCl (Ondansetron 4 Mg/2 Ml Sdv) 4 mg IVPUSH Q6H PRN PRN Reason: Nausea/Vomiting Polyethylene Glycol (Polyethylene Glycol 3350 Powder 17 Gm Packet) 17 gm PO DAILY PRN PRN Reason: Constipation Sodium Chloride (Sodium Chloride 0.9% 10 Ml Syringe) 10 ml FLUSH ASDIRECTED PRN PRN Reason: Keep Vein Open Discontinued Medications Adenosine (Adenosine 6 Mg/2 Ml Sdv) 6 mg IVPUSH NOW ONE Stop: 03/12/21 09:36 Last Admin: 03/12/21 09:39 Dose: 6 mg Documented by: Adenosine (Adenosine 12 Mg/4 Ml Sdv) 12 mg IVPUSH NOW ONE Stop: 03/12/21 09:46 Last Admin: 03/12/21 09:47 Dose: 12 mg Documented by: Adenosine (Adenosine 6 Mg/2 Ml Sdv) 6 mg IVPUSH NOW ONE Stop: 03/12/21 09:43 Last Admin: 03/12/21 09:44 Dose: 6 mg Documented by: Dexamethasone (Dexamethasone 4 Mg/Ml Sdv) 6 mg IVPUSH DAILY [facility] Stop: 03/20/21 09:01 Last Admin: 03/15/21 10:08 Dose: 6 mg Documented by: Diltiazem HCl (Diltiazem 25 Mg/5 Ml Sdv) 20 mg IVPUSH ONETIME ONE Stop: 03/12/21 09:15 Last Admin: 03/12/21 09:27 Dose: 20 mg Documented by: Enoxaparin Sodium (Enoxaparin 40 Mg/0.4 Ml Syringe) 40 mg SUBCUT BEDTIME [facility] Last Admin: 03/11/21 22:08 Dose: 40 mg Documented by: Remdesivir 200 mg/ Sodium (Chloride) 250 mls @ 250 mls/hr IV ONETIME ONE Stop: 03/11/21 20:59 Last Infusion: 03/11/21 22:11 Dose: Infused Documented by: Remdesivir 100 mg/ Sodium (Chloride) 100 mls @ 100 mls/hr IV Q24H [facility] Stop: 03/15/21 20:59 Last Admin: 03/15/21 20:13 Dose: 100 mls/hr Documented by: Sterile Water (Sterile Water For Injection) Confirm Administered Dose 20 mls @ as directed .ROUTE .STK-MED ONE Stop: 03/13/21 19:46 Last Admin: 03/13/21 22:05 Dose: Not Given Documented by: Iopamidol (Iopamidol 755 Mg/Ml 100 Ml Bottle) 100 ml IVPUSH ONETIME ONE Stop: 03/11/21 17:47 Last Admin: 03/11/21 17:48 Dose: 73 ml Documented by: Metoprolol Tartrate (Metoprolol Tartrate 5 Mg/5 Ml Sdv) 5 mg IVPUSH Q6H PRN PRN Reason: Other Last Admin: 03/12/21 11:18 Dose: 5 mg Documented by: Metoprolol Tartrate (Metoprolol Tartrate 5 Mg/5 Ml Sdv) 5 mg IVPUSH Q6H [facility] Last Admin: 03/12/21 17:23 Dose: 5 mg Documented by: Metoprolol Tartrate (Metoprolol Tartrate 25 Mg Tab) 25 mg PO Q12H [facility] Last Admin: 03/13/21 07:08 Dose: Not Given Documented by: Metoprolol Tartrate (Metoprolol Tartrate 50 Mg Tab) 50 mg PO Q12HR [facility] Last Admin: 03/14/21 08:16 Dose: 50 mg Documented by: Metoprolol Tartrate (Metoprolol Tartrate 5 Mg/5 Ml Sdv) 5 mg IVPUSH ONETIME ONE Stop: 03/14/21 08:19 Last Admin: 03/14/21 08:38 Dose: 5 mg Documented by: Metoprolol Tartrate (Metoprolol Tartrate 50 Mg Tab) 50 mg PO Q6H [facility] Last Admin: 03/15/21 10:07 Dose: 50 mg Documented by: Metoprolol Tartrate (Metoprolol Tartrate 25 Mg Tab) 25 mg PO ONETIME ONE Stop: 03/15/21 09:55 Last Admin: 03/15/21 10:17 Dose: 25 mg Documented by: Promethazine HCl/Codeine (Codeine/Promethazine 10-6.25 Mg/5 Ml Syrup 5 Ml Ud Cup) 10 ml PO ONETIME ONE Stop: 03/11/21 15:58 Last Admin: 03/11/21 16:03 Dose: 10 ml Documented by: Sodium Chloride (Sodium Chloride 0.9% 10 Ml Syringe) 10 ml FLUSH ASDIRECTED PRN PRN Reason: Keep Vein Open Last Admin: 03/11/21 20:59 Dose: 10 ml Documented by: - Exam Quality Assessment: Supplemental Oxygen Urinary Catheter Total Time: 2Days 10Hours General: Alert, Oriented HEENT: Pupils Equal Neck: Supple Lungs: Decreased Breath Sounds, Crackles Cardiovascular: Regular Rate, Irregular Rhythm GI/Abdominal Exam: Normal Bowel Sounds, Soft, Non-Tender Back Exam: Normal Inspection Extremities: Normal Inspection, No Pedal Edema Peripheral Pulses: 2+: Radial (L), Radial (R) Skin: Warm, Dry Neurological: No New Focal Deficit Psy/Mental Status: Alert - Patient Data Lab Results Last 24 hrs: Laboratory Results - last 24 hr 03/16/21 03/16/21 Range/Units 05:10 05:10 WBC 16.4 H (5.0-10.0) 10^3/uL Sodium 140 (136-145) mmol/L Potassium 4.4 (3.5-5.1) mmol/L Chloride 103 (98-107) mmol/L Carbon Dioxide 26 (21-32) mmol/L Anion Gap 15.4 H (7-13) mEq/L BUN 16 (7-18) mg/dL Creatinine 0.65 (0.55-1.02) mg/dL Est Cr Clr Drug Dosing 92.23 mL/min Estimated GFR (MDRD) > 60 Glucose 114 H (70-99) mg/dL Calcium 8.0 L (8.5-10.1) mg/dL Magnesium 2.3 (1.8-2.4) mg/dL Result Diagrams: 03/16/21 05:10 03/16/21 05:10 Juanjose Results Last 24 hrs: Microbiology 03/11/21 15:35 Aerobic Blood Culture - Preliminary Blood - Arm, Left NO GROWTH AFTER 4 DAYS Anaerobic Blood Culture - Preliminary NO GROWTH AFTER 4 DAYS 03/11/21 15:32 Aerobic Blood Culture - Preliminary Blood - Venous - Iv Start NO GROWTH AFTER 4 DAYS Anaerobic Blood Culture - Preliminary NO GROWTH AFTER 4 DAYS Sepsis Event Note - Evaluation Sepsis Screening Result: No Definite Risk - Focused Exam Vital Signs: Vital Signs Temp Pulse Pulse Resp BP BP Pulse Ox 03/16/21 04:00 97.8 F 102 H 20 132/86 03/16/21 03:11 102 H 132/86 03/16/21 00:00 97.3 F 99 20 124/87 97 03/15/21 20:09 100 126/75 03/15/21 20:00 97.6 F 105 H 20 114/72 95 - Problem List & Annotations (1) Atrial fibrillation with RVR SNOMED Code(s): 634654297271391 Code(s): I48.91 - UNSPECIFIED ATRIAL FIBRILLATION Status: Acute Current Visit: Yes (2) Acute respiratory failure due to COVID-19 SNOMED Code(s): 438733299 Code(s): U07.1 - COVID-19; J96.00 - ACUTE RESPIRATORY FAILURE, UNSP W HYPOXIA OR HYPERCAPNIA Status: Acute Current Visit: Yes (3) COVID-19 virus infection SNOMED Code(s): 935749841 Code(s): U07.1 - COVID-19 Status: Acute Current Visit: No - Problem List Review Problem List Initiated/Reviewed/Updated: Yes - My Orders Last 24 Hours: My Active Orders 03/15/21 14:00 Metoprolol Tartrate [Lopressor] 75 mg PO Q6H 03/16/21 08:00 dexAMETHasone 6 mg PO DAILY@0800 - Plan Plan:: ACTIVE PROBLEMS: Covid 19 viral pneumonia # Acute respiratory failure with hypoxia 2/2 above -Required high flow nasal cannula was able be weaned off 03-16-21- [place] saturations on 8 L via nasal cannula - pt initially refused remdesivir. requested ivermectin and hydroxychloroquine (request denied based on lack of evidence available) - was agreeable and started on remdesivir 03-12-21 - completed course - dexamethasone and remdesivir per protocol - lab monitoring according to protocol - telemetry - wean oxygen as tolerated - aggressive IS 10x in a row every hour while awake - Prone as tolerated - RT consulted to follow - Recommend vaccination 90 days post infection # Atrial fibrillation with RVR Hx of palpitations, unspecified - Rate increased to 200 03/12/21 -EKG initially appeared to be SVT. Cardizem 20mg IV push x1, adenosine 6mg x2 and 12mg x1 given with no change in rate. diltiazem gtt - [facility] cardiology contacted 03/12/21, strips sent, evaluation noted small irregularities after adenosine induced asystole consistent with atrial fibrillation with RVR - continue metoprolol PO with goal to uptitrate - continue with 75 mg PO Q6 - added PO diltizem ER 120 mg PO - wean diltiazem drip - - eliquis 5mg bid - pt will require outpatient echo at discharge CHRONIC CONDITIONS: - unspecified depression: continue cymbalta - nicotine dependence, cigarettes, uncomplicated: nicotine replacement per protocol. Code status: Full code DVT prophylaxis: PO eliquis Prognosis:continue inpatient status for acute hypoxic respiratory failure secondary to COVID-19 pneumonia, diltiazem drip due to afib with rvr
[2021-03-16] MEDS: Diltiazem 125 MG in Sodium Chloride 0.9% 100 ML IV SCH (09:21)
[2021-03-16] MEDS: DULoxetine 30 MG Cap PO SCH (09:24)
[2021-03-16] MEDS: Dexamethasone 6 MG TABLET PO SCH (09:25)
[2021-03-16] MEDS: Apixaban 5 MG Tab PO SCH ×2 (09:25→20:55)
[2021-03-16] MEDS: Diltiazem 120 MG Cap.CD PO SCH (09:36)
[2021-03-17] MEDS: Metoprolol Tartrate 50 MG Tab PO SCH ×2 (05:23→18:15)
--- NOTE | 2021-03-17 07:20 | PCM.PN ---
- General Info Date of Service: 03/17/21 Admission Dx/Problem (Free Text): Admission Diagnosis/Problem Admission Diagnosis/Problem covid 19 viral pneumonia, acute respiratory failure with hypoxia, atrial fibrillation with RVR Subjective Update: Patient states that she feels her breathing is again stable to improved. States that her palpitations have resolved. Patient did convert to sinus rhythm overnight. Patient has increased energy today and overall improved mood. Patient denies any abdominal pain, nausea or vomiting. States that her appetite has continued to improve. Remainder review of systems is negative except for those listed above. - Patient Data Vitals - Most Recent: Last Vital Signs Temp 98 F 03/17/21 05:24 Pulse 62 03/17/21 05:24 Resp 20 03/17/21 05:24 BP 124/62 03/17/21 05:24 Pulse Ox 94 L 03/17/21 05:24 Weight - Most Recent: 180 lb 9.6 oz I&O - Last 24 Hours: Intake & Output 03/16/21 03/17/21 03/17/21 22:59 06:59 14:59 Intake Total 520 Balance 520 Juanjose Results Last 24 Hours: Microbiology 03/11/21 15:35 Aerobic Blood Culture - Final Blood - Arm, Left NO GROWTH AFTER 5 DAYS Anaerobic Blood Culture - Final NO GROWTH AFTER 5 DAYS 03/11/21 15:32 Aerobic Blood Culture - Final Blood - Venous - Iv Start NO GROWTH AFTER 5 DAYS Anaerobic Blood Culture - Final NO GROWTH AFTER 5 DAYS Med Orders - Current: Current Medications Acetaminophen (Acetaminophen 325 Mg Tab) 650 mg PO Q4H PRN PRN Reason: Pain (Mild 1-3)/fever Last Admin: 03/11/21 21:01 Dose: 650 mg Documented by: Apixaban (Apixaban 5 Mg Tab) 5 mg PO BID [facility] [place] Last Admin: 03/16/21 20:55 Dose: 5 mg Documented by: Dexamethasone (Dexamethasone 6 Mg Tablet) 6 mg PO DAILY@0800 [facility] [place] Stop: 03/20/21 08:01 Last Admin: 03/16/21 09:25 Dose: 6 mg Documented by: Diltiazem HCl (Diltiazem 120 Mg Cap.Cd) 120 mg PO DAILY [facility] [place] Last Admin: 03/16/21 09:36 Dose: 120 mg Documented by: Duloxetine HCl (Duloxetine 30 Mg Cap) 90 mg PO DAILY [facility] [place] Last Admin: 03/16/21 09:24 Dose: 90 mg Documented by: Diltiazem HCl 125 mg/ Sodium (Chloride) 125 mls @ 10 mls/hr IV TITRATE [facility] [place]; Protocol Last Titration: 03/16/21 15:49 Dose: 0 mg/hr, 0 mls/hr Documented by: Metoprolol Tartrate (Metoprolol Tartrate 50 Mg Tab) 75 mg PO Q12H [facility] [place] Last Admin: 03/17/21 05:23 Dose: 75 mg Documented by: Ondansetron HCl (Ondansetron 4 Mg/2 Ml Sdv) 4 mg IVPUSH Q6H PRN PRN Reason: Nausea/Vomiting Polyethylene Glycol (Polyethylene Glycol 3350 Powder 17 Gm Packet) 17 gm PO DAILY PRN PRN Reason: Constipation Sodium Chloride (Sodium Chloride 0.9% 10 Ml Syringe) 10 ml FLUSH ASDIRECTED PRN PRN Reason: Keep Vein Open Discontinued Medications Adenosine (Adenosine 6 Mg/2 Ml Sdv) 6 mg IVPUSH NOW ONE Stop: 03/12/21 09:36 Last Admin: 03/12/21 09:39 Dose: 6 mg Documented by: Adenosine (Adenosine 12 Mg/4 Ml Sdv) 12 mg IVPUSH NOW ONE Stop: 03/12/21 09:46 Last Admin: 03/12/21 09:47 Dose: 12 mg Documented by: Adenosine (Adenosine 6 Mg/2 Ml Sdv) 6 mg IVPUSH NOW ONE Stop: 03/12/21 09:43 Last Admin: 03/12/21 09:44 Dose: 6 mg Documented by: Dexamethasone (Dexamethasone 4 Mg/Ml Sdv) 6 mg IVPUSH DAILY [facility] [place] Stop: 03/20/21 09:01 Last Admin: 03/15/21 10:08 Dose: 6 mg Documented by: Diltiazem HCl (Diltiazem 25 Mg/5 Ml Sdv) 20 mg IVPUSH ONETIME ONE Stop: 03/12/21 09:15 Last Admin: 03/12/21 09:27 Dose: 20 mg Documented by: Enoxaparin Sodium (Enoxaparin 40 Mg/0.4 Ml Syringe) 40 mg SUBCUT BEDTIME [facility] [place] Last Admin: 03/11/21 22:08 Dose: 40 mg Documented by: Remdesivir 200 mg/ Sodium (Chloride) 250 mls @ 250 mls/hr IV ONETIME ONE Stop: 03/11/21 20:59 Last Infusion: 03/11/21 22:11 Dose: Infused Documented by: Remdesivir 100 mg/ Sodium (Chloride) 100 mls @ 100 mls/hr IV Q24H [facility] [place] Stop: 03/15/21 20:59 Last Admin: 03/15/21 20:13 Dose: 100 mls/hr Documented by: Sterile Water (Sterile Water For Injection) Confirm Administered Dose 20 mls @ as directed .ROUTE .STK-MED ONE Stop: 03/13/21 19:46 Last Admin: 03/13/21 22:05 Dose: Not Given Documented by: Iopamidol (Iopamidol 755 Mg/Ml 100 Ml Bottle) 100 ml IVPUSH ONETIME ONE Stop: 03/11/21 17:47 Last Admin: 03/11/21 17:48 Dose: 73 ml Documented by: Metoprolol Tartrate (Metoprolol Tartrate 5 Mg/5 Ml Sdv) 5 mg IVPUSH Q6H PRN PRN Reason: Other Last Admin: 03/12/21 11:18 Dose: 5 mg Documented by: Metoprolol Tartrate (Metoprolol Tartrate 5 Mg/5 Ml Sdv) 5 mg IVPUSH Q6H [facility] [place] Last Admin: 03/12/21 17:23 Dose: 5 mg Documented by: Metoprolol Tartrate (Metoprolol Tartrate 25 Mg Tab) 25 mg PO Q12H [facility] [place] Last Admin: 03/13/21 07:08 Dose: Not Given Documented by: Metoprolol Tartrate (Metoprolol Tartrate 50 Mg Tab) 50 mg PO Q12HR [facility] [place] Last Admin: 03/14/21 08:16 Dose: 50 mg Documented by: Metoprolol Tartrate (Metoprolol Tartrate 5 Mg/5 Ml Sdv) 5 mg IVPUSH ONETIME ONE Stop: 03/14/21 08:19 Last Admin: 03/14/21 08:38 Dose: 5 mg Documented by: Metoprolol Tartrate (Metoprolol Tartrate 50 Mg Tab) 50 mg PO Q6H [facility] [place] Last Admin: 03/15/21 10:07 Dose: 50 mg Documented by: Metoprolol Tartrate (Metoprolol Tartrate 50 Mg Tab) 75 mg PO Q6H [facility] [place] Last Admin: 03/16/21 14:35 Dose: 75 mg Documented by: Metoprolol Tartrate (Metoprolol Tartrate 25 Mg Tab) 25 mg PO ONETIME ONE Stop: 03/15/21 09:55 Last Admin: 03/15/21 10:17 Dose: 25 mg Documented by: Promethazine HCl/Codeine (Codeine/Promethazine 10-6.25 Mg/5 Ml Syrup 5 Ml Ud Cup) 10 ml PO ONETIME ONE Stop: 03/11/21 15:58 Last Admin: 03/11/21 16:03 Dose: 10 ml Documented by: Sodium Chloride (Sodium Chloride 0.9% 10 Ml Syringe) 10 ml FLUSH ASDIRECTED PRN PRN Reason: Keep Vein Open Last Admin: 03/11/21 20:59 Dose: 10 ml Documented by: - Exam Quality Assessment: Supplemental Oxygen Urinary Catheter Total Time: 2Days 10Hours General: Alert, Oriented HEENT: Pupils Equal Neck: Supple Lungs: Decreased Breath Sounds, Crackles Cardiovascular: Regular Rate, Regular Rhythm GI/Abdominal Exam: Normal Bowel Sounds, Soft Back Exam: Normal Inspection Extremities: Normal Inspection Peripheral Pulses: 2+: Radial (L), Radial (R) Skin: Warm Neurological: No New Focal Deficit Psy/Mental Status: Alert - Patient Data Result Diagrams: 03/16/21 05:10 03/16/21 05:10 Juanjose Results Last 24 hrs: Microbiology 03/11/21 15:35 Aerobic Blood Culture - Final Blood - Arm, Left NO GROWTH AFTER 5 DAYS Anaerobic Blood Culture - Final NO GROWTH AFTER 5 DAYS 03/11/21 15:32 Aerobic Blood Culture - Final Blood - Venous - Iv Start NO GROWTH AFTER 5 DAYS Anaerobic Blood Culture - Final NO GROWTH AFTER 5 DAYS Sepsis Event Note - Evaluation Sepsis Screening Result: No Definite Risk - Focused Exam Vital Signs: Vital Signs Temp Pulse Pulse Resp BP BP Pulse Ox 03/17/21 05:24 98 F 62 20 124/62 94 L 03/17/21 05:23 81 124/62 03/17/21 00:00 98 F 68 20 109/66 94 L 03/16/21 20:00 98.6 F 20 112/58 L 95 - Problem List & Annotations (1) Atrial fibrillation with RVR SNOMED Code(s): 728456698519744 Code(s): I48.91 - UNSPECIFIED ATRIAL FIBRILLATION Status: Acute Current Visit: Yes (2) Acute respiratory failure due to COVID-19 SNOMED Code(s): 835505695 Code(s): U07.1 - COVID-19; J96.00 - ACUTE RESPIRATORY FAILURE, UNSP W HYPOXIA OR HYPERCAPNIA Status: Acute Current Visit: Yes (3) COVID-19 virus infection SNOMED Code(s): 636492032 Code(s): U07.1 - COVID-19 Status: Acute Current Visit: No - Problem List Review Problem List Initiated/Reviewed/Updated: Yes - My Orders Last 24 Hours: My Active Orders 03/16/21 08:00 dexAMETHasone 6 mg PO DAILY@0800 03/16/21 09:30 Diltiazem [Cardizem CD] 120 mg PO DAILY 03/16/21 18:00 Metoprolol Tartrate [Lopressor] 75 mg PO Q12H - Plan Plan:: ACTIVE PROBLEMS: Covid 19 viral pneumonia # Acute respiratory failure with hypoxia 2/2 above -Required high flow nasal cannula was able be weaned off 03-16-21- currently maintaining oxygen saturations on 8 L via nasal cannula - pt initially refused remdesivir. requested ivermectin and hydroxychloroquine (request denied based on lack of evidence available) - was agreeable and started on remdesivir 03-12-21 - completed course - dexamethasone and remdesivir per protocol - lab monitoring according to protocol - telemetry - wean oxygen as tolerated - aggressive IS while awake - Prone as tolerated - RT consulted to follow - Recommend vaccination 90 days post infection # Atrial fibrillation with RVR - Hx of palpitations, unspecified - Rate increased to 200 03/12/21 -EKG initially appeared to be SVT. Cardizem 20mg IV push x1, adenosine 6mg x2 and 12mg x1 given with no change in rate. diltiaz em gtt - [facility] cardiology contacted 03/12/21, strips sent, evaluation noted small irregularities after adenosine induced asystole consistent with atrial fibrillation with RVR - continue metoprolol PO 75 mg PO Q12 - PO diltizem ER 120 mg PO - converted to NSR 03/16/21 - eliquis 5mg bid - pt will require outpatient echo after discharge CHRONIC CONDITIONS: - unspecified depression: continue cymbalta - nicotine dependence, cigarettes, uncomplicated: nicotine replacement per protocol. Code status: Full code DVT prophylaxis: PO eliquis Prognosis: continue inpatient status for acute hypoxic respiratory failure secondary to COVID-19 pneumonia
[2021-03-17] MEDS: Diltiazem 120 MG Cap.CD PO SCH (09:00)
[2021-03-17] MEDS: Dexamethasone 6 MG TABLET PO SCH (09:00)
[2021-03-17] MEDS: Apixaban 5 MG Tab PO SCH ×2 (09:01→21:28)
[2021-03-17] MEDS: DULoxetine 30 MG Cap PO SCH (09:02)
[2021-03-17] MEDS: Sodium Chloride 0.9% 10 ML Syringe FLUSH PRN ×2 (22:42→22:43)
[2021-03-18] MEDS: Metoprolol Tartrate 50 MG Tab PO SCH ×2 (06:01→18:03)
--- NOTE | 2021-03-18 06:50 | PCM.PN ---
- General Info Date of Service: 03/18/21 Admission Dx/Problem (Free Text): Admission Diagnosis/Problem Admission Diagnosis/Problem covid 19 viral pneumonia, acute respiratory failure with hypoxia, atrial fibrillation with RVR Subjective Update: Patient states that she feels her breathing is again improved. Denies any palpitations, chest pains or pressures, abdominal pain, nausea or vomiting. States that her appetite has continued to improve. Patient has consistently been up spirited only had prolonged discussions about possibility of going home with home oxygen pending continued improvement. Remainder review of systems is negative except for those listed above. - Patient Data Vitals - Most Recent: Last Vital Signs Temp 97.7 F 03/18/21 05:59 Pulse 68 03/18/21 06:01 Resp 20 03/18/21 05:59 BP 118/61 03/18/21 06:01 Pulse Ox 93 L 03/18/21 05:59 Weight - Most Recent: 179 lb I&O - Last 24 Hours: Intake & Output 03/17/21 03/17/21 03/18/21 14:59 22:59 06:59 Intake Total 500 400 200 Balance 500 400 200 Med Orders - Current: Current Medications Acetaminophen (Acetaminophen 325 Mg Tab) 650 mg PO Q4H PRN PRN Reason: Pain (Mild 1-3)/fever Last Admin: 03/11/21 21:01 Dose: 650 mg Documented by: Apixaban (Apixaban 5 Mg Tab) 5 mg PO BID [facility] Last Admin: 03/17/21 21:28 Dose: 5 mg Documented by: Dexamethasone (Dexamethasone 6 Mg Tablet) 6 mg PO DAILY@0800 [facility] Stop: 03/20/21 08:01 Last Admin: 03/17/21 09:00 Dose: 6 mg Documented by: Diltiazem HCl (Diltiazem 120 Mg Cap.Cd) 120 mg PO DAILY [facility] Last Admin: 03/17/21 09:00 Dose: 120 mg Documented by: Duloxetine HCl (Duloxetine 30 Mg Cap) 90 mg PO DAILY [facility] Last Admin: 03/17/21 09:02 Dose: 90 mg Documented by: Metoprolol Tartrate (Metoprolol Tartrate 50 Mg Tab) 75 mg PO Q12H [facility] Last Admin: 03/18/21 06:01 Dose: 75 mg Documented by: Ondansetron HCl (Ondansetron 4 Mg/2 Ml Sdv) 4 mg IVPUSH Q6H PRN PRN Reason: Nausea/Vomiting Polyethylene Glycol (Polyethylene Glycol 3350 Powder 17 Gm Packet) 17 gm PO DAILY PRN PRN Reason: Constipation Sodium Chloride (Sodium Chloride 0.9% 10 Ml Syringe) 10 ml FLUSH ASDIRECTED PRN PRN Reason: Keep Vein Open Last Admin: 03/17/21 22:43 Dose: 10 ml Documented by: Discontinued Medications Adenosine (Adenosine 6 Mg/2 Ml Sdv) 6 mg IVPUSH NOW ONE Stop: 03/12/21 09:36 Last Admin: 03/12/21 09:39 Dose: 6 mg Documented by: Adenosine (Adenosine 12 Mg/4 Ml Sdv) 12 mg IVPUSH NOW ONE Stop: 03/12/21 09:46 Last Admin: 03/12/21 09:47 Dose: 12 mg Documented by: Adenosine (Adenosine 6 Mg/2 Ml Sdv) 6 mg IVPUSH NOW ONE Stop: 03/12/21 09:43 Last Admin: 03/12/21 09:44 Dose: 6 mg Documented by: Dexamethasone (Dexamethasone 4 Mg/Ml Sdv) 6 mg IVPUSH DAILY [facility] Stop: 03/20/21 09:01 Last Admin: 03/15/21 10:08 Dose: 6 mg Documented by: Diltiazem HCl (Diltiazem 25 Mg/5 Ml Sdv) 20 mg IVPUSH ONETIME ONE Stop: 03/12/21 09:15 Last Admin: 03/12/21 09:27 Dose: 20 mg Documented by: Enoxaparin Sodium (Enoxaparin 40 Mg/0.4 Ml Syringe) 40 mg SUBCUT BEDTIME [facility] Last Admin: 03/11/21 22:08 Dose: 40 mg Documented by: Remdesivir 200 mg/ Sodium (Chloride) 250 mls @ 250 mls/hr IV ONETIME ONE Stop: 03/11/21 20:59 Last Infusion: 03/11/21 22:11 Dose: Infused Documented by: Remdesivir 100 mg/ Sodium (Chloride) 100 mls @ 100 mls/hr IV Q24H [facility] Stop: 03/15/21 20:59 Last Admin: 03/15/21 20:13 Dose: 100 mls/hr Documented by: Diltiazem HCl 125 mg/ Sodium (Chloride) 125 mls @ 10 mls/hr IV TITRATE [facility]; Protocol Last Titration: 03/16/21 15:49 Dose: 0 mg/hr, 0 mls/hr Documented by: Sterile Water (Sterile Water For Injection) Confirm Administered Dose 20 mls @ as directed .ROUTE .STK-MED ONE Stop: 03/13/21 19:46 Last Admin: 03/13/21 22:05 Dose: Not Given Documented by: Iopamidol (Iopamidol 755 Mg/Ml 100 Ml Bottle) 100 ml IVPUSH ONETIME ONE Stop: 03/11/21 17:47 Last Admin: 03/11/21 17:48 Dose: 73 ml Documented by: Metoprolol Tartrate (Metoprolol Tartrate 5 Mg/5 Ml Sdv) 5 mg IVPUSH Q6H PRN PRN Reason: Other Last Admin: 03/12/21 11:18 Dose: 5 mg Documented by: Metoprolol Tartrate (Metoprolol Tartrate 5 Mg/5 Ml Sdv) 5 mg IVPUSH Q6H [facility] Last Admin: 03/12/21 17:23 Dose: 5 mg Documented by: Metoprolol Tartrate (Metoprolol Tartrate 25 Mg Tab) 25 mg PO Q12H [facility] Last Admin: 03/13/21 07:08 Dose: Not Given Documented by: Metoprolol Tartrate (Metoprolol Tartrate 50 Mg Tab) 50 mg PO Q12HR [facility] Last Admin: 03/14/21 08:16 Dose: 50 mg Documented by: Metoprolol Tartrate (Metoprolol Tartrate 5 Mg/5 Ml Sdv) 5 mg IVPUSH ONETIME ONE Stop: 03/14/21 08:19 Last Admin: 03/14/21 08:38 Dose: 5 mg Documented by: Metoprolol Tartrate (Metoprolol Tartrate 50 Mg Tab) 50 mg PO Q6H [facility] Last Admin: 03/15/21 10:07 Dose: 50 mg Documented by: Metoprolol Tartrate (Metoprolol Tartrate 50 Mg Tab) 75 mg PO Q6H [facility] Last Admin: 03/16/21 14:35 Dose: 75 mg Documented by: Metoprolol Tartrate (Metoprolol Tartrate 25 Mg Tab) 25 mg PO ONETIME ONE Stop: 03/15/21 09:55 Last Admin: 03/15/21 10:17 Dose: 25 mg Documented by: Promethazine HCl/Codeine (Codeine/Promethazine 10-6.25 Mg/5 Ml Syrup 5 Ml Ud Cup) 10 ml PO ONETIME ONE Stop: 03/11/21 15:58 Last Admin: 03/11/21 16:03 Dose: 10 ml Documented by: Sodium Chloride (Sodium Chloride 0.9% 10 Ml Syringe) 10 ml FLUSH ASDIRECTED PRN PRN Reason: Keep Vein Open Last Admin: 03/11/21 20:59 Dose: 10 ml Documented by: - Exam Quality Assessment: Supplemental Oxygen Urinary Catheter Total Time: 2Days 10Hours General: Alert, Oriented HEENT: Pupils Equal Neck: Supple Lungs: Decreased Breath Sounds, Crackles Cardiovascular: Regular Rate, Regular Rhythm GI/Abdominal Exam: Normal Bowel Sounds, Soft Back Exam: Normal Inspection Peripheral Pulses: 2+: Radial (L), Radial (R) Skin: Warm Neurological: No New Focal Deficit Psy/Mental Status: Alert - Patient Data Result Diagrams: 03/16/21 05:10 03/16/21 05:10 Sepsis Event Note - Evaluation Sepsis Screening Result: No Definite Risk - Focused Exam Vital Signs: Vital Signs Temp Pulse Pulse Resp BP BP Pulse Ox 03/18/21 06:01 68 118/61 03/18/21 05:59 97.7 F 68 20 118/61 93 L 03/17/21 23:15 97.7 F 66 20 117/73 93 L 03/17/21 20:00 95 03/17/21 19:58 97.9 F 61 20 114/67 95 - Problem List & Annotations (1) Atrial fibrillation with RVR SNOMED Code(s): 436773884684039 Code(s): I48.91 - UNSPECIFIED ATRIAL FIBRILLATION Status: Acute Current Visit: Yes (2) Acute respiratory failure due to COVID-19 SNOMED Code(s): 857469587 Code(s): U07.1 - COVID-19; J96.00 - ACUTE RESPIRATORY FAILURE, UNSP W HYPOXIA OR HYPERCAPNIA Status: Acute Current Visit: Yes (3) COVID-19 virus infection SNOMED Code(s): 541203155 Code(s): U07.1 - COVID-19 Status: Acute Current Visit: No - Problem List Review Problem List Initiated/Reviewed/Updated: Yes - Plan Plan:: ACTIVE PROBLEMS: Covid 19 viral pneumonia # Acute respiratory failure with hypoxia 2/2 above - Required high flow nasal cannula was able be weaned off 03-16-21 - currently maintaining oxygen saturations on 6 L via nasal cannula - improved from prior day - pt initially refused remdesivir. requested ivermectin and hydroxychloroquine (request denied based on lack of evidence available) - was agreeable and started on remdesivir 03-12-21 - - dexamethasone (end date 03/20/21) and remdesivir (completed course) per protocol - lab monitoring according to protocol - telemetry - wean oxygen as tolerated - aggressive IS while awake - Prone as tolerated - RT consulted to follow - Recommend vaccination 90 days post infection # Atrial fibrillation with RVR - Hx of palpitations, unspecified - Rate increased to 200 03/12/21 -EKG initially appeared to be SVT. Cardizem 20mg IV push x1, adenosine 6mg x2 and 12mg x1 given with no change in rate. diltiazem gtt - [facility] contacted 03/12/21, strips sent, evaluation noted small irregularities after adenosine induced asystole consistent with atrial fibrillation with RVR - continue metoprolol PO 75 mg PO Q12 - PO diltizem ER 120 mg PO - converted to NSR 03/16/21 - eliquis 5mg bid - pt will require outpatient echo after discharge CHRONIC CONDITIONS: - unspecified depression: continue cymbalta - nicotine dependence, cigarettes, uncomplicated: nicotine replacement per protocol. Code status: Full code DVT prophylaxis: PO eliquis Prognosis: continue inpatient status for acute hypoxic respiratory failure secondary to COVID-19 pneumonia -approaching medical stability, will likely go home with home oxygen once oxygen saturations are maintained on 3 to 4 L
[2021-03-18] MEDS: Diltiazem 120 MG Cap.CD PO SCH (08:39)
[2021-03-18] MEDS: DULoxetine 30 MG Cap PO SCH (08:40)
[2021-03-18] MEDS: Apixaban 5 MG Tab PO SCH ×2 (08:41→20:33)
[2021-03-18] MEDS: Dexamethasone 6 MG TABLET PO SCH (08:41)
--- NOTE | 2021-03-18 19:08 | PCM.DCSUM1 ---
Discharge Summary - Hospital Course Free Text/Narrative:: Alyssa is a 56 year old woman with PMH significant for depression who presented to the ED from clinic by Tania Glynn NP with c/o cough, hypoxia, and recent COVID diagnosis. she is not vaccinated. she reported 10 days of COVID symptoms, and tested positive in clinic 03/04/21. She was seen for follow up in clinic today for evaluation of continued cough and was requesting cough medicine. O2 sat in clinic was 73% on room air. associated symptoms include: fever, cough, fatigue, and headache from coughing. She denies shortness of breath, chest pain, hemoptysis, abdominal pain, N/V/D, edema, or rash. she tried OTC medications to make it better but they did not work. she feels worse with activity and better with rest. she has never had anything like this before. she has no pain. Patient was admitted for further monitoring of her COVID-19 pneumonia and acute hypoxic respiratory failure. On the morning of 03-12-21 patient had a heart rate increased to 200, EKG initially showed a narrow complex tachycardia thought to be SVT. Patient was given Cardizem IV push, adenosine x3 with no change in rate. Diltiazem drip was started. [facility] cardiology was contacted to straight stent and evaluation noticed small irregularities after adenosine consistent with atrial fibrillation with RVR. Patient was continued on a diltiazem drip and p.o. medications including p.o. metoprolol p.o. diltiazem were added and patient converted to normal sinus rhythm on 03-16-21. Patient will be discharged on metoprolol p.o. and Eliquis. She will require an outpatient TTE following discharge. Her patient's COVID-19 pneumonia capacity respiratory failure patient initially refused remdesivir but was agreeable and was started on and completed a course of remdesivir and dexamethasone. Patient did require high flow nasal cannula during her hospital stay including high 75% FiO2. Patient had improvement in her saturations and was able be weaned off of high flow nasal cannula on 03-16-21. Patient is able to maintain oxygen saturations on 2-3L and will be discharged with home O2. Patient requires home O2 given continued hypoxia with COVID-19 pneumonia. Recommend vaccination 90 days post infection and patient was agreeable. - Discharge Data Discharge Date: 03/19/21 Discharge Disposition: Home, Self-Care 01 Condition: Good - Referral to Home Health Primary Care Physician: PCP None - Discharge Diagnosis/Problem(s) (1) Atrial fibrillation with RVR SNOMED Code(s): 653676554853031 ICD Code: I48.91 - UNSPECIFIED ATRIAL FIBRILLATION Status: Acute Current Visit: Yes (2) Acute respiratory failure due to COVID-19 SNOMED Code(s): 503702818 ICD Code: U07.1 - COVID-19; J96.00 - ACUTE RESPIRATORY FAILURE, UNSP W HYPOXIA OR HYPERCAPNIA Status: Acute Current Visit: Yes (3) COVID-19 virus infection SNOMED Code(s): 435770592 ICD Code: U07.1 - COVID-19 Status: Acute Current Visit: Yes (4) Acute hypoxemic respiratory failure SNOMED Code(s): 947900603 ICD Code: J96.01 - ACUTE RESPIRATORY FAILURE WITH HYPOXIA Status: Acute Current Visit: Yes - Patient Instructions Diet: Heart Healthy Diet Driving: Do Not Drive Showering/Bathing: May Shower - Discharge Plan *PRESCRIPTION DRUG MONITORING PROGRAM REVIEWED*: Not Applicable *COPY OF PRESCRIPTION DRUG MONITORING REPORT IN PATIENT YANE: Not Applicable Prescriptions/Med Rec: Apixaban [Eliquis] 5 mg PO BID #60 tablet Metoprolol Tartrate [Lopressor] 75 mg PO Q12H #90 tablet Home Medications: Home Meds DULoxetine [Cymbalta] 90 mg PO DAILY 08/23/16 [History] Diclofenac Sodium [Diclofenac Sodium ER] 100 mg PO DAILY 08/23/16 [History] Apixaban [Eliquis] 5 mg PO BID #60 tablet 03/19/21 [Rx] Metoprolol Tartrate [Lopressor] 75 mg PO Q12H #90 tablet 03/19/21 [Rx] Oxygen Therapy Mode: Nasal Cannula Oxygen Flow Rate (L/min): 2 (2-3L) Maintain SpO2% greater than: 90 Patient Handouts: COVID-19 Frequently Asked Questions Referrals: Tania Glynn NP [Ordering Only Provider] - - Discharge Summary/Plan Comment DC Time >30 min.: Yes Total # of Minutes for Discharge Time: 30 minutes - Patient Data Vitals - Most Recent: Last Vital Signs Temp 97.0 F 03/18/21 16:00 Pulse 64 03/18/21 18:03 Resp 22 H 03/18/21 16:00 BP 107/60 03/18/21 18:03 Pulse Ox 94 L 03/18/21 17:53 Weight - Most Recent: 179 lb I&O - Last 24 hours: Intake & Output 03/18/21 03/18/21 03/18/21 06:59 14:59 22:59 Intake Total 200 920 640 Balance 200 920 640 Med Orders - Current: Current Medications Acetaminophen (Acetaminophen 325 Mg Tab) 650 mg PO Q4H PRN PRN Reason: Pain (Mild 1-3)/fever Last Admin: 03/11/21 21:01 Dose: 650 mg Documented by: Apixaban (Apixaban 5 Mg Tab) 5 mg PO BID [facility] Last Admin: 03/18/21 08:41 Dose: 5 mg Documented by: Dexamethasone (Dexamethasone 6 Mg Tablet) 6 mg PO DAILY@0800 [facility] Stop: 03/20/21 08:01 Last Admin: 03/18/21 08:41 Dose: 6 mg Documented by: Diltiazem HCl (Diltiazem 120 Mg Cap.Cd) 120 mg PO DAILY [facility] Last Admin: 03/18/21 08:39 Dose: 120 mg Documented by: Duloxetine HCl (Duloxetine 30 Mg Cap) 90 mg PO DAILY [facility] Last Admin: 03/18/21 08:40 Dose: 90 mg Documented by: Metoprolol Tartrate (Metoprolol Tartrate 50 Mg Tab) 75 mg PO Q12H [facility] Last Admin: 03/18/21 18:03 Dose: 75 mg Documented by: Ondansetron HCl (Ondansetron 4 Mg/2 Ml Sdv) 4 mg IVPUSH Q6H PRN PRN Reason: Nausea/Vomiting Polyethylene Glycol (Polyethylene Glycol 3350 Powder 17 Gm Packet) 17 gm PO DAILY PRN PRN Reason: Constipation Sodium Chloride (Sodium Chloride 0.9% 10 Ml Syringe) 10 ml FLUSH ASDIRECTED PRN PRN Reason: Keep Vein Open Last Admin: 03/17/21 22:43 Dose: 10 ml Documented by: Discontinued Medications Adenosine (Adenosine 6 Mg/2 Ml Sdv) 6 mg IVPUSH NOW ONE Stop: 03/12/21 09:36 Last Admin: 03/12/21 09:39 Dose: 6 mg Documented by: Adenosine (Adenosine 12 Mg/4 Ml Sdv) 12 mg IVPUSH NOW ONE Stop: 03/12/21 09:46 Last Admin: 03/12/21 09:47 Dose: 12 mg Documented by: Adenosine (Adenosine 6 Mg/2 Ml Sdv) 6 mg IVPUSH NOW ONE Stop: 03/12/21 09:43 Last Admin: 03/12/21 09:44 Dose: 6 mg Documented by: Dexamethasone (Dexamethasone 4 Mg/Ml Sdv) 6 mg IVPUSH DAILY [facility] Stop: 03/20/21 09:01 Last Admin: 03/15/21 10:08 Dose: 6 mg Documented by: Diltiazem HCl (Diltiazem 25 Mg/5 Ml Sdv) 20 mg IVPUSH ONETIME ONE Stop: 03/12/21 09:15 Last Admin: 03/12/21 09:27 Dose: 20 mg Documented by: Enoxaparin Sodium (Enoxaparin 40 Mg/0.4 Ml Syringe) 40 mg SUBCUT BEDTIME [facility] Last Admin: 03/11/21 22:08 Dose: 40 mg Documented by: Remdesivir 200 mg/ Sodium (Chloride) 250 mls @ 250 mls/hr IV ONETIME ONE Stop: 03/11/21 20:59 Last Infusion: 03/11/21 22:11 Dose: Infused Documented by: Remdesivir 100 mg/ Sodium (Chloride) 100 mls @ 100 mls/hr IV Q24H [facility] Stop: 03/15/21 20:59 Last Admin: 03/15/21 20:13 Dose: 100 mls/hr Documented by: Diltiazem HCl 125 mg/ Sodium (Chloride) 125 mls @ 10 mls/hr IV TITRATE [facility]; Protocol Last Titration: 03/16/21 15:49 Dose: 0 mg/hr, 0 mls/hr Documented by: Sterile Water (Sterile Water For Injection) Confirm Administered Dose 20 mls @ as directed .ROUTE .STK-MED ONE Stop: 03/13/21 19:46 Last Admin: 03/13/21 22:05 Dose: Not Given Documented by: Iopamidol (Iopamidol 755 Mg/Ml 100 Ml Bottle) 100 ml IVPUSH ONETIME ONE Stop: 03/11/21 17:47 Last Admin: 03/11/21 17:48 Dose: 73 ml Documented by: Metoprolol Tartrate (Metoprolol Tartrate 5 Mg/5 Ml Sdv) 5 mg IVPUSH Q6H PRN PRN Reason: Other Last Admin: 03/12/21 11:18 Dose: 5 mg Documented by: Metoprolol Tartrate (Metoprolol Tartrate 5 Mg/5 Ml Sdv) 5 mg IVPUSH Q6H [facility] Last Admin: 03/12/21 17:23 Dose: 5 mg Documented by: Metoprolol Tartrate (Metoprolol Tartrate 25 Mg Tab) 25 mg PO Q12H [facility] Last Admin: 03/13/21 07:08 Dose: Not Given Documented by: Metoprolol Tartrate (Metoprolol Tartrate 50 Mg Tab) 50 mg PO Q12HR [facility] Last Admin: 03/14/21 08:16 Dose: 50 mg Documented by: Metoprolol Tartrate (Metoprolol Tartrate 5 Mg/5 Ml Sdv) 5 mg IVPUSH ONETIME ONE Stop: 03/14/21 08:19 Last Admin: 03/14/21 08:38 Dose: 5 mg Documented by: Metoprolol Tartrate (Metoprolol Tartrate 50 Mg Tab) 50 mg PO Q6H [facility] Last Admin: 03/15/21 10:07 Dose: 50 mg Documented by: Metoprolol Tartrate (Metoprolol Tartrate 50 Mg Tab) 75 mg PO Q6H [facility] Last Admin: 03/16/21 14:35 Dose: 75 mg Documented by: Metoprolol Tartrate (Metoprolol Tartrate 25 Mg Tab) 25 mg PO ONETIME ONE Stop: 03/15/21 09:55 Last Admin: 03/15/21 10:17 Dose: 25 mg Documented by: Promethazine HCl/Codeine (Codeine/Promethazine 10-6.25 Mg/5 Ml Syrup 5 Ml Ud Cup) 10 ml PO ONETIME ONE Stop: 03/11/21 15:58 Last Admin: 03/11/21 16:03 Dose: 10 ml Documented by: Sodium Chloride (Sodium Chloride 0.9% 10 Ml Syringe) 10 ml FLUSH ASDIRECTED PRN PRN Reason: Keep Vein Open Last Admin: 03/11/21 20:59 Dose: 10 ml Documented by:
--- NOTE | 2021-03-19 05:37 | PCM.PN ---
- General Info Date of Service: 03/19/21 Admission Dx/Problem (Free Text): Admission Diagnosis/Problem Admission Diagnosis/Problem covid 19 viral pneumonia, acute respiratory failure with hypoxia, atrial fibrillation with RVR Subjective Update: Patient states that she feels her breathing is dramatically improved, not quite near baseline but significantly the best that it is been during her hospital stay. Denies any palpitations, chest pains or pressures, abdominal pain, nausea or vomiting. States that her appetite has continued to improve. We discussed at length going home with home oxygen and patient stated understanding. Discussed COVID-19 vaccination in 90 days at length and patient was agreeable. T. Remainder review of systems is negative except for those listed above. - Patient Data Vitals - Most Recent: Last Vital Signs Temp 97.4 F 03/19/21 04:00 Pulse 55 L 03/19/21 04:00 Resp 22 H 03/19/21 04:00 BP 112/70 03/19/21 04:00 Pulse Ox 91 L 03/19/21 04:00 Weight - Most Recent: 179 lb I&O - Last 24 Hours: Intake & Output 03/18/21 03/18/21 03/19/21 14:59 22:59 06:59 Intake Total 920 820 Balance 920 820 Med Orders - Current: Current Medications Acetaminophen (Acetaminophen 325 Mg Tab) 650 mg PO Q4H PRN PRN Reason: Pain (Mild 1-3)/fever Last Admin: 03/11/21 21:01 Dose: 650 mg Documented by: Apixaban (Apixaban 5 Mg Tab) 5 mg PO BID [facility] Last Admin: 03/18/21 20:33 Dose: 5 mg Documented by: Dexamethasone (Dexamethasone 6 Mg Tablet) 6 mg PO DAILY@0800 [facility] Stop: 03/20/21 08:01 Last Admin: 03/18/21 08:41 Dose: 6 mg Documented by: Diltiazem HCl (Diltiazem 120 Mg Cap.Cd) 120 mg PO DAILY [facility] Last Admin: 03/18/21 08:39 Dose: 120 mg Documented by: Duloxetine HCl (Duloxetine 30 Mg Cap) 90 mg PO DAILY [facility] Last Admin: 03/18/21 08:40 Dose: 90 mg Documented by: Metoprolol Tartrate (Metoprolol Tartrate 50 Mg Tab) 75 mg PO Q12H [facility] Last Admin: 03/18/21 18:03 Dose: 75 mg Documented by: Ondansetron HCl (Ondansetron 4 Mg/2 Ml Sdv) 4 mg IVPUSH Q6H PRN PRN Reason: Nausea/Vomiting Polyethylene Glycol (Polyethylene Glycol 3350 Powder 17 Gm Packet) 17 gm PO D AILY PRN PRN Reason: Constipation Sodium Chloride (Sodium Chloride 0.9% 10 Ml Syringe) 10 ml FLUSH ASDIRECTED PRN PRN Reason: Keep Vein Open Last Admin: 03/17/21 22:43 Dose: 10 ml Documented by: Discontinued Medications Adenosine (Adenosine 6 Mg/2 Ml Sdv) 6 mg IVPUSH NOW ONE Stop: 03/12/21 09:36 Last Admin: 03/12/21 09:39 Dose: 6 mg Documented by: Adenosine (Adenosine 12 Mg/4 Ml Sdv) 12 mg IVPUSH NOW ONE Stop: 03/12/21 09:46 Last Admin: 03/12/21 09:47 Dose: 12 mg Documented by: Adenosine (Adenosine 6 Mg/2 Ml Sdv) 6 mg IVPUSH NOW ONE Stop: 03/12/21 09:43 Last Admin: 03/12/21 09:44 Dose: 6 mg Documented by: Dexamethasone (Dexamethasone 4 Mg/Ml Sdv) 6 mg IVPUSH DAILY [facility] Stop: 03/20/21 09:01 Last Admin: 03/15/21 10:08 Dose: 6 mg Documented by: Diltiazem HCl (Diltiazem 25 Mg/5 Ml Sdv) 20 mg IVPUSH ONETIME ONE Stop: 03/12/21 09:15 Last Admin: 03/12/21 09:27 Dose: 20 mg Documented by: Enoxaparin Sodium (Enoxaparin 40 Mg/0.4 Ml Syringe) 40 mg SUBCUT BEDTIME [facility] Last Admin: 03/11/21 22:08 Dose: 40 mg Documented by: Remdesivir 200 mg/ Sodium (Chloride) 250 mls @ 250 mls/hr IV ONETIME ONE Stop: 03/11/21 20:59 Last Infusion: 03/11/21 22:11 Dose: Infused Documented by: Remdesivir 100 mg/ Sodium (Chloride) 100 mls @ 100 mls/hr IV Q24H [facility] Stop: 03/15/21 20:59 Last Admin: 03/15/21 20:13 Dose: 100 mls/hr Documented by: Diltiazem HCl 125 mg/ Sodium (Chloride) 125 mls @ 10 mls/hr IV TITRATE [facility]; Protocol Last Titration: 03/16/21 15:49 Dose: 0 mg/hr, 0 mls/hr Documented by: Sterile Water (Sterile Water For Injection) Confirm Administered Dose 20 mls @ as directed .ROUTE .STK-MED ONE Stop: 03/13/21 19:46 Last Admin: 03/13/21 22:05 Dose: Not Given Documented by: Iopamidol (Iopamidol 755 Mg/Ml 100 Ml Bottle) 100 ml IVPUSH ONETIME ONE Stop: 03/11/21 17:47 Last Admin: 03/11/21 17:48 Dose: 73 ml Documented by: Metoprolol Tartrate (Metoprolol Tartrate 5 Mg/5 Ml Sdv) 5 mg IVPUSH Q6H PRN PRN Reason: Other Last Admin: 03/12/21 11:18 Dose: 5 mg Documented by: Metoprolol Tartrate (Metoprolol Tartrate 5 Mg/5 Ml Sdv) 5 mg IVPUSH Q6H [facility] Last Admin: 03/12/21 17:23 Dose: 5 mg Documented by: Metoprolol Tartrate (Metoprolol Tartrate 25 Mg Tab) 25 mg PO Q12H [facility] Last Admin: 03/13/21 07:08 Dose: Not Given Documented by: Metoprolol Tartrate (Metoprolol Tartrate 50 Mg Tab) 50 mg PO Q12HR [facility] Last Admin: 03/14/21 08:16 Dose: 50 mg Documented by: Metoprolol Tartrate (Metoprolol Tartrate 5 Mg/5 Ml Sdv) 5 mg IVPUSH ONETIME ONE Stop: 03/14/21 08:19 Last Admin: 03/14/21 08:38 Dose: 5 mg Documented by: Metoprolol Tartrate (Metoprolol Tartrate 50 Mg Tab) 50 mg PO Q6H [facility] Last Admin: 03/15/21 10:07 Dose: 50 mg Documented by: Metoprolol Tartrate (Metoprolol Tartrate 50 Mg Tab) 75 mg PO Q6H [facility] Last Admin: 03/16/21 14:35 Dose: 75 mg Documented by: Metoprolol Tartrate (Metoprolol Tartrate 25 Mg Tab) 25 mg PO ONETIME ONE Stop: 03/15/21 09:55 Last Admin: 03/15/21 10:17 Dose: 25 mg Documented by: Promethazine HCl/Codeine (Codeine/Promethazine 10-6.25 Mg/5 Ml Syrup 5 Ml Ud Cup) 10 ml PO ONETIME ONE Stop: 03/11/21 15:58 Last Admin: 03/11/21 16:03 Dose: 10 ml Documented by: Sodium Chloride (Sodium Chloride 0.9% 10 Ml Syringe) 10 ml FLUSH ASDIRECTED PRN PRN Reason: Keep Vein Open Last Admin: 03/11/21 20:59 Dose: 10 ml Documented by: - Exam Quality Assessment: Supplemental Oxygen Urinary Catheter Total Time: 2Days 10Hours General: Alert, Oriented HEENT: Pupils Equal Neck: Supple Lungs: Decreased Breath Sounds (lower lung franco), Crackles (lower lung franco) Cardiovascular: Regular Rate, Regular Rhythm GI/Abdominal Exam: Normal Bowel Sounds, Soft, Non-Tender Back Exam: Normal Inspection Extremities: Normal Inspection Peripheral Pulses: 2+: Radial (L), Radial (R) Skin: Warm Neurological: No New Focal Deficit Psy/Mental Status: Alert - Patient Data Result Diagrams: 03/16/21 05:10 03/16/21 05:10 Sepsis Event Note - Evaluation Sepsis Screening Result: No Definite Risk - Focused Exam Vital Signs: Vital Signs Temp Pulse Pulse Resp BP BP BP 03/19/21 04:00 97.4 F 55 L 22 H 112/70 03/19/21 00:00 97.3 F 53 L 24 H 03/18/21 20:44 97.4 F 61 23 H 108/70 03/18/21 20:00 03/18/21 18:03 64 107/60 03/18/21 17:53 Pulse Ox Pulse Ox 03/19/21 04:00 91 L 03/19/21 00:00 94 L 03/18/21 20:44 94 L 03/18/21 20:00 94 L 03/18/21 18:03 03/18/21 17:53 94 L - Problem List & Annotations (1) Atrial fibrillation with RVR SNOMED Code(s): 399143001775269 Code(s): I48.91 - UNSPECIFIED ATRIAL FIBRILLATION Status: Acute Current Visit: Yes (2) Acute respiratory failure due to COVID-19 SNOMED Code(s): 797539462 Code(s): U07.1 - COVID-19; J96.00 - ACUTE RESPIRATORY FAILURE, UNSP W HYPOXIA OR HYPERCAPNIA Status: Acute Current Visit: Yes (3) COVID-19 virus infection SNOMED Code(s): 426077644 Code(s): U07.1 - COVID-19 Status: Acute Current Visit: Yes - Problem List Review Problem List Initiated/Reviewed/Updated: Yes - Plan Plan:: ACTIVE PROBLEMS: Covid 19 viral pneumonia # Acute respiratory failure with hypoxia 2/2 above - Required high flow nasal cannula was able be weaned off 03-16-21 - currently maintaining oxygen saturations on 2 L via nasal cannula - improved from prior day - pt initially refused remdesivir. requested ivermectin and hydroxychloroquine (request denied based on lack of evidence available) - was agreeable and started on remdesivir 03-12-21 - - dexamethasone (end date 03/20/21) and remdesivir (completed course) per protocol - lab monitoring according to protocol - telemetry - wean oxygen as tolerated - aggressive IS while awake - Prone as tolerated - RT consulted to follow - Recommend vaccination 90 days post infection # Atrial fibrillation with RVR - Hx of palpitations, unspecified - Rate increased to 200 03/12/21 -EKG initially appeared to be SVT. Cardizem 20mg IV push x1, adenosine 6mg x2 and 12mg x1 given with no change in rate. diltiazem gtt - [facility] contacted 03/12/21, strips sent, evaluation noted small irregularities after adenosine induced asystole consistent with atrial fibrillation with RVR - continue metoprolol PO 75 mg PO Q12 - PO diltizem ER 120 mg PO - converted to NSR 03/16/21 - will discharge with PO metoprolol - eliquis 5mg bid - pt will require outpatient echo after discharge CHRONIC CONDITIONS: - unspecified depression: continue cymbalta - nicotine dependence, cigarettes, uncomplicated: nicotine replacement per protocol. Code status: Full code DVT prophylaxis: PO eliquis Prognosis: medically stable for discharge with home oxygen
[2021-03-19] MEDS: Metoprolol Tartrate 50 MG Tab PO SCH ×2 (05:43→09:52)
[2021-03-19 07:58] VITALS: BP 116/63
[2021-03-19] MEDS: Apixaban 5 MG Tab PO SCH (09:50)
[2021-03-19] MEDS: DULoxetine 30 MG Cap PO SCH (09:50)
[2021-03-19] MEDS: Dexamethasone 6 MG TABLET PO SCH (09:50)
[2021-03-19 09:53] VITALS: PULSE 76
== END 2021-03-19 11:45 | disposition home or self-care (01) | DRG 177 ==
LOC: DL.ED 15:29 → DL.MS 17:56
PROVIDERS: ADMIT Hospitalist; ATTEND Internal Medicine
PROC: 8E0ZXY6 Isolation (ICD-10-PCS; principal; 2021-03-11)
PROC: XW033E5 Introduction of Remdesivir Anti-infective into Peripheral Vein, Percutaneous Approach, New Technology Group 5 (ICD-10-PCS; 2021-03-11)
PROC: 3E0333Z Introduction of Anti-inflammatory into Peripheral Vein, Percutaneous Approach (ICD-10-PCS; 2021-03-11)
PROC: 5A0935A Assistance with Respiratory Ventilation, Less than 24 Consecutive Hours, High Flow/Velocity Cannula (ICD-10-PCS; 2021-03-15)
PROC: 3E0DX3Z Introduction of Anti-inflammatory into Mouth and Pharynx, External Approach (ICD-10-PCS; 2021-03-16)
DX: U07.1 COVID-19 (principal); J12.82 Pneumonia due to coronavirus disease 2019; J96.01 Acute respiratory failure with hypoxia; I47.1 Supraventricular tachycardia; I48.91 Unspecified atrial fibrillation; M19.90 Unspecified osteoarthritis, unspecified site; F32.A Depression, unspecified; F17.210 Nicotine dependence, cigarettes, uncomplicated; Z71.6 Tobacco abuse counseling; Z79.899 Other long term (current) drug therapy; Z90.710 Acquired absence of both cervix and uterus; Z28.82 Immunization not carried out because of caregiver refusal
CPT/HCPCS: 36415; 51702; 71260; 80048; 80053; 82248; 82728; 83605; 83735; 84460; 84484; 85025; 85027; 85048; 85379; 85610; 85730; 86140; 87040; 99285-25; A9270-GY; J0153; J1100; J1650; J3490; J7050; J8540; Q9967